=== PATIENT | female | born 1930 | race Caucasian/White ===

== ENCOUNTER 2017-08-03 18:17 | Inpatient (IN) ==
[2017-08-03] MEDS ORDERED: Ipratropium/Albuterol Neb 3 ML ONE (18:44)
[2017-08-03] MEDS ORDERED: Ipratropium/Albuterol Neb 3 ML IH ONE (18:54)
--- NOTE | 2017-08-03 19:03 | Emergency Department Note ---
Disposition Clinical Impression: COPD exacerbation, Risk for falls CHF (congestive heart failure) Qualifiers: Congestive heart failure type: unspecified congestive heart failure type Congestive heart failure chronicity: unspecified congestive heart failure chronicity Qualified Code(s): I50.9 - Heart failure, unspecified Disposition: Admitted As Inpatient Condition: Good Forms: ED Satisfaction Letter Time of Disposition: 20:45 SOB HPI - General Chief Complaint: ED Shortness of Breath/Dyspnea Stated Complaint: [place] Time Seen by Provider: 08/03/17 18:38 Source: patient, family Limitations: no limitations - History of Present Illness Mrs. Joseph is an 87-year-old woman with a history of COPD, CHF, ED status post AICD placement, frequent falls, dementia who presents the ED with 3 days of worsening dyspnea and cough with productive sputum. The patient is demented at baseline and is unable to answer questions freely, she is accompanied by family members who fill in the details. The patient is on home O2 at night only, and COPD he has generally been well controlled however in the past 3 days the patient is experienced more frequent cough, and she has experienced desaturation to less than 88% requiring O2 during the day. Breathing treatments at home were not successful in relieving her symptoms. According to her family, she has felt very cloud engineer the past 3 days and she has been experiencing diaphoresis and chills occasionally as well. She denies chest pain on exertion. The patient's family mentions that she also had some nausea and vomiting and diarrhea approximately 2 days ago which seemed to resolve without complication. Pt Subjective Complaint: shortness of breath Onset (ago): day(s) Context: recent illness Severity: moderate Consistency/Duration: intermittent Improves with: oxygen, upright position Worsens with: exertion, coughing Known history of: COPD, congestive heart failure Associated symptoms: Reports: fever, cough, wheezing, sputum production Treatment prior to arrival: oxygen, bronchodilator Cough present: Yes Cough Description: Voluntary, Productive, Wheezy Cough Frequency: Intermittent Sputum production: Yes Sputum Amount: Scant - Related Data Home oxygen amount: 2 liters (at night) Home Medications Medication Instructions Recorded Confirmed Alprazolam [Xanax] 0.125 mg PO DAILY PRN #0 05/14/15 02/05/16 Carvedilol [Coreg] 25 mg PO BID #0 05/14/15 02/05/16 Ergocalciferol (VITAMIN D2) 50,000 unit PO QWEEK #0 05/14/15 02/05/16 [Vitamin D2 (50,000 UNIT)] Gabapentin [Neurontin] 300 - 600 mg PO HS #0 05/14/15 02/05/16 Losartan [Cozaar] 25 mg PO DAILY 05/14/15 02/05/16 Montelukast [Singulair] 10 mg PO DAILY #0 05/14/15 02/05/16 Venlafaxine XR (24 HR) [Effexor XR] 150 mg PO DAILY #0 05/14/15 02/05/16 Fluticasone/Salmeterol [Advair 1 each IH BID 02/05/16 02/05/16 250-50 Diskus] Furosemide [Lasix] 40 mg PO DAILY 02/05/16 02/05/16 Omeprazole [PriLOSEC] 20 mg PO DAILY 02/05/16 02/05/16 Previous Rx's Medication Instructions Recorded Tiotropium [Spiriva] 18 mcg IH DAILYR 30 Days inh 07/18/15 Benzonatate [Tessalon] 100 mg PO TID PRN #0 capsule 02/07/16 levoFLOXacin [Levaquin] 500 mg PO Q48H #7 tablet 02/07/16 predniSONE [PredniSONE] 10 mg PO DAILY #31 tablet 02/07/16 Azithromycin [Zithromax] 500 mg PO DAILY #5 tablet 09/09/16 Naproxen [Naprosyn] 500 mg PO BID #10 tablet 09/09/16 OxyCODONE/APAP 5/325 [Percocet 1 each PO Q6HR PRN #15 tablet 09/09/16 5/325 MG] Cetirizine HCl [Zyrtec] 10 mg PO DAILY #14 capsule 04/11/17 Fluticasone Propionate Nasal 16 gm NS DAILY #1 bottle 04/11/17 [Flonase] Nitrofurantoin (BID) [Macrobid] 100 mg PO BID #10 capsule 07/01/17 Azithromycin [Azithromycin 6-Tab 250 mg PO PER PKG DI #4 tab 07/17/17 Pack] Allergies Allergy/AdvReac Type Severity Reaction Status Date / Time Penicillins Allergy Hives Verified 09/09/16 14:39 Review of Systems: CONSTITUTIONAL: No weight loss, weakness or fatigue. Positive for fever and chills HEENT: Eyes: No visual loss, blurred vision, double vision or yellow sclerae. Ears, Nose, Throat: No hearing loss, sneezing, congestion, runny nose or sore throat. SKIN: No rash or itching. CARDIOVASCULAR: No chest pain, chest pressure or chest discomfort. No palpitations or edema. RESPIRATORY: Shortness of breath with hypoxia and productive cough GASTROINTESTINAL: No anorexia, nausea. No abdominal pain or blood. Positive for vomiting and diarrhea in past few days which has resolved NEUROLOGICAL: No headache, dizziness, syncope, paralysis, ataxia, numbness or tingling in the extremities. No change in bowel or bladder control. MUSCULOSKELETAL: No muscle, back pain, joint pain or stiffness. HEMATOLOGIC: No anemia, bleeding or bruising. LYMPHATICS: No enlarged nodes. No history of splenectomy. PSYCHIATRIC: No history of depression or anxiety. Baseline dementia ENDOCRINOLOGIC: No reports of sweating, cold or heat intolerance. No polyuria or polydipsia. ALLERGIES: No history of asthma, hives, eczema or rhinitis. Past Medical History - Past Medical History Medical history: Reports: asthma, CHF, COPD, DVT, hypertension, TIA Surgical history: Reports: appendectomy, cholecystectomy, pacemaker/AICD Psychiatric history: Reports: anxiety, bipolar, depression FISH WARDEN history: Reports: no FISH WARDEN history, other - Social History Smoking Status: Former smoker Smokeless Tobacco Status: No Alcohol use: Reports: none Drug use: Reports: none Physical Exam Gen.: Vitals noted. No acute distress. AAOx3 HEENT: PERRL/EOMI, oropharynx clear, Normocephalic, atraumatic Neck: Supple. No adenopathy. Cardiac: RRR, no murmur, +S1/S2 Pulmonary: Diffuse mild rhonchi and end expiratory wheezes on exam Abdomen: soft, nontender, BS noted, no guarding Back: Nontender throughout. MSK: ROM intact, no joint swelling noted Extremities: no BLE edema, nontender calf, no cyanosis or clubbing Neuro: A&Ox2 at baseline, moves all extremities, no focal deficits Psych: Appropriate mood and behavior - General Limitations: no limitations General appearance: alert, in distress Course - Reevaluation(s) Reevaluation #1: Troponin 0.04, BNP 1233. The patient does have increased edema according to family, and troponin is likely secondary to demand ischemia. Time: 20:15 Vital Signs Temperature 98.6 F 08/03/17 18:34 Pulse Rate 95 08/03/17 18:34 Respiratory Rate 24 08/03/17 18:34 Blood Pressure 194/83 08/03/17 18:34 O2 Sat by Pulse Oximetry 92 08/03/17 18:34 Temperature 98.6 F 08/03/17 18:34 Pulse Rate 95 08/03/17 18:34 Respiratory Rate 24 08/03/17 18:34 Blood Pressure 194/83 08/03/17 18:34 O2 Sat by Pulse Oximetry 92 08/03/17 18:34 Oxygen Delivery Oxygen Delivery Room Air Shortness of Breath/Dyspnea - MDM Narrative Medical decision making narrative: Mrs. Joseph is an 87-year-old woman with known history of COPD, CHF, CAD status post AICD. She presented to the ED with increasing dyspnea over the past 3 days which is accompanied by productive cough. She uses oxygen at home overnight at about 2 L/m however in the past 12 hours she has required her to use throughout the day as well to maintain oxygen saturation above 88%. At time of presentation the patient's vitals are stable. She has diffusely rhonchorous and wheezy lung sounds. Clinical appearance is that of an acute exacerbation of COPD. On UA the patient demonstrated numerous white blood cells and meets criteria for UTI. We will initiate steroids and antibiotics at the time, patient will require admission. - Differential Diagnosis Likely: acute exacerbation of chronic obstructive airways disease - Medical Records Medical records reviewed: Yes I reviewed the patient's medical records. - Lab Data Lab results reviewed: Yes I reviewed the patient's lab results. Result diagrams: 08/03/17 19:42 08/03/17 19:42 Lab Results 08/03/17 08/03/17 08/03/17 Range/Units 19:27 19:42 19:42 WBC 8.4 (4.3-11.1) K/mcL RBC 3.91 (3.82-4.97) M/mcL Hgb 11.3 L (11.5-15.4) g/dL Hct 36.1 (35.3-44.9) % MCV 92.3 (83.0-100.0) fL MCH 28.9 (28.0-33.3) pg MCHC 31.3 L (31.6-35.5) g/dL RDW 13.0 (11.5-14.5) % Plt Count 148 (140-400) K/mcL MPV 10.5 (9.4-12.4) fL Immature Gran % 0.4 (0-4) % Seg Neutrophils % 82.1 % Lymphocytes % 8.7 % Monocytes % 7.4 % Eosinophils % 1.0 % Basophils % 0.4 % Neutrophils # 6.9 (1.6-8.9) K/mcL Lymphocytes # 0.7 (0.6-4.6) K/mcL Monocytes # 0.6 (0.0-1.3) K/mcL Eosinophils # 0.1 (0.0-0.6) K/mcL Basophils # 0.0 (0.0-0.2) K/mcL Sodium 139 (136-145) mEq/L Potassium 3.8 (3.5-5.1) mEq/L Chloride 107 (98-107) mEq/L Carbon Dioxide 26 (23-29) mEq/L BUN 14 (8-23) mg/dL Creatinine 1.01 (0.60-1.20) mg/dL Est GFR ( Amer) > 60 (> 60) Est GFR (Non-Af Amer) 52 L (> 60) BUN/Creatinine Ratio 14 (6-26) Glucose 138 H (70-105) mg/dL Calculated Osmolality 291 (280-300) Lactic Acid (0.5-2.2) mmol/L Calcium 8.7 (8.6-10.3) mg/dL Troponin I (< 0.04) ng/mL B-Natriuretic Peptide (Less than 100) pg/mL Urine Color Yellow (Yellow) Urine Clarity Cloudy A (Clear) Urine pH 6.0 (5.0-8.0) pH Units Ur Specific [place] 1.015 (1.010-1.025) Urine Protein 30 H (Neg-Trace) mg/dL Urine Glucose (UA) Normal (Normal) mg/dL Urine Ketones Negative (Negative) mg/dL Urine Blood Small H (Negative) Urine Nitrite Negative (Negative) Urine Bilirubin Negative (Negative) Urine Urobilinogen Normal (Normal) mg/dL Ur Leukocyte Esterase Moderate H (Negative) Urine Microscopic RBC 5-15 H (0-3) per hpf Urine Microscopic WBC TNTC H (0-3) per hpf Ur Squamous Epith Cells Few (None-Few) per lpf Urine Bacteria Many H (None-Few) per hpf Hyaline Casts None Seen (None-Few) per lpf Ur Culture Indicated? YES A (NO) 08/03/17 08/03/17 08/03/17 Range/Units 19:42 19:42 19:42 WBC (4.3-11.1) K/mcL RBC (3.82-4.97) M/mcL Hgb (11.5-15.4) g/dL Hct (35.3-44.9) % MCV (83.0-100.0) fL MCH (28.0-33.3) pg MCHC (31.6-35.5) g/dL RDW (11.5-14.5) % Plt Count (140-400) K/mcL MPV (9.4-12.4) fL Immature Gran % (0-4) % Seg Neutrophils % % Lymphocytes % % Monocytes % % Eosinophils % % Basophils % % Neutrophils # (1.6-8.9) K/mcL Lymphocytes # (0.6-4.6) K/mcL Monocytes # (0.0-1.3) K/mcL Eosinophils # (0.0-0.6) K/mcL Basophils # (0.0-0.2) K/mcL Sodium (136-145) mEq/L Potassium (3.5-5.1) mEq/L Chloride (98-107) mEq/L Carbon Dioxide (23-29) mEq/L BUN (8-23) mg/dL Creatinine (0.60-1.20) mg/dL Est GFR ( Amer) (> 60) Est GFR (Non-Af Amer) (> 60) BUN/Creatinine Ratio (6-26) Glucose (70-105) mg/dL Calculated Osmolality (280-300) Lactic Acid 1.8 (0.5-2.2) mmol/L Calcium (8.6-10.3) mg/dL Troponin I 0.04 H* (< 0.04) ng/mL B-Natriuretic Peptide 1233 H (Less than 100) pg/mL Urine Color (Yellow) Urine Clarity (Clear) Urine pH (5.0-8.0) pH Units Ur Specific [place] (1.010-1.025) Urine Protein (Neg-Trace) mg/dL Urine Glucose (UA) (Normal) mg/dL Urine Ketones (Negative) mg/dL Urine Blood (Negative) Urine Nitrite (Negative) Urine Bilirubin (Negative) Urine Urobilinogen (Normal) mg/dL Ur Leukocyte Esterase (Negative) Urine Microscopic RBC (0-3) per hpf Urine Microscopic WBC (0-3) per hpf Ur Squamous Epith Cells (None-Few) per lpf Urine Bacteria (None-Few) per hpf Hyaline Casts (None-Few) per lpf Ur Culture Indicated? (NO) - Radiology Data Radiology results reviewed: Yes I reviewed the patient's radiology results. - EKG Data EKG attestation: Yes I reviewed and interpreted this EKG.
--- NOTE | 2017-08-03 19:10 | Emergency Department Note ---
START Narrative - START START: I examined this patient and my medical decision-making was reviewed with the Resident Physician. I agree with the documented findings, disposition and treatment plan as described except to the extent set forth below. 87-year-old female presents emergency room for shortness of breath. Patient has a known history of COPD. Worse home oxygen only at night. She describes increasing dyspnea and work of breathing associated with cough and wheezing. Evaluation seems to be a COPD exacerbation. We will check some screening lab work, chest x-ray. Likely an admission.
[2017-08-03] MEDS ORDERED: Azithromycin 500 MG in D5% in Water 250 ML IVPB ONE (19:15)
[2017-08-03] MEDS ORDERED: methylPREDNISolone 125 MG/2 ML VIAL IVP ONE (19:15)
[2017-08-03 19:36] LABS: Bilirubin,Urine Negative (Negative); Blood,Urine Small (Negative); Clarity,Urine Cloudy (Clear); Color,Urine Yellow (Yellow); Glucose,Urine (UA) Normal (Normal); Ketones,Urine Negative (Negative); Leukocyte Esterase,Urine Moderate (Negative); Nitrite,Urine Negative (Negative); Protein,Urine 30 mg/dL (Neg-Trace); Specific Gravity,Urine 1.015 (1.010-1.025); Urobilinogen,Urine Normal (Normal)
[2017-08-03 19:39] LABS: Bacteria,Urine Many per hpf (None-Few); Hyaline Casts,Urine None Seen per lpf (None-Few); Squamous Epithelial Cell,Urine Few per lpf (None-Few); WBC,Urine TNTC per hpf (0-3)
[2017-08-03 20:02] LABS: Basophils % 0.4 %; Eosinophils # 0.1 K/mcL (0.0-0.6); Hematocrit 36.1 % (35.3-44.9); Hemoglobin 11.3 g/dL (11.5-15.4); Immature Granulocytes % 0.4 % (0-4); Lymphocytes # 0.7 K/mcL (0.6-4.6); Lymphocytes % 8.7 %; Mean Corpuscular HGB Conc 31.3 g/dL (31.6-35.5); Mean Corpuscular Hemoglobin 28.9 pg (28.0-33.3); Mean Corpuscular Volume 92.3 fL (83.0-100.0); Mean Platelet Volume 10.5 fL (9.4-12.4); Monocytes # 0.6 K/mcL (0.0-1.3); Monocytes % 7.4 %; Neutrophils # 6.9 K/mcL (1.6-8.9); Platelet Count 148 K/mcL (140-400); Red Blood Count 3.91 M/mcL (3.82-4.97); Segmented Neutrophils % 82.1 %
[2017-08-03 20:08] LABS: BUN/Creatinine Ratio 14 (6-26); Blood Urea Nitrogen 14 mg/dL (8-23); Calcium 8.7 mg/dL (8.6-10.3); Carbon Dioxide 26 mEq/L (23-29); Chloride 107 mEq/L (98-107); Glucose 138 mg/dL (70-105); Osmolality,Calculated 291 (280-300); Potassium 3.8 mEq/L (3.5-5.1); Sodium 139 mEq/L (136-145); eGFR For African Americans > 60 (> 60); eGFR For Non-African Americans 52 (> 60)
[2017-08-03] MEDS ORDERED: Furosemide 20 MG/2 ML VIAL IVP ONE (20:30)
[2017-08-04] MEDS ORDERED: Levofloxacin 750 MG/150 ML 750 MG/150 ML BAG IVPB SCH (01:00)
--- NOTE | 2017-08-04 05:35 | Internal Med History&Physical ---
Date of Encounter: 08/04/17 Time of Encounter: 05:29 Assessment and Plan (1) Acute respiratory failure with hypoxia Current visit: Yes Status: Acute Multifactororial likely pneumonia/COPD exacerbation, CHF. Continue Duo Neb, start PO Prednisone, sputum cultures, procalcitonin, Lasix IV 20 mg BID, daily weights, Levaquin. (2) COPD exacerbation Current visit: No Status: Resolved Prednisone, Duo Nebs scheduled, Levaquin (3) Systolic heart failure Current visit: Yes Status: Acute On Coreg and Avapro. Continue diuresis. Last echocardiogram was 02/2016 with EF 40%. Qualifiers: Heart failure chronicity: acute on chronic Qualified Code(s): I50.23 - Acute on chronic systolic (congestive) heart failure (4) Pneumonia Current visit: Yes Status: Acute Continue Levaquin Qualifiers: Pneumonia type: due to unspecified organism Laterality: unspecified laterality Lung location: unspecified part of lung Qualified Code(s): J18.9 - Pneumonia, unspecified organism (5) Urinary tract infection Current visit: Yes Status: Acute Levaquin Qualifiers: Urinary tract infection type: site unspecified Hematuria presence: without hematuria Qualified Code(s): N39.0 - Urinary tract infection, site not specified (6) Essential hypertension Current visit: Yes Status: Acute (7) COPD exacerbation Current visit: Yes Status: Acute (8) DVT prophylaxis Current visit: No Status: Acute Heparin Sq 5,000 units BID Internal Medicine - H&P: HPI Chief complaint: dyspnea History of present illness: Mrs. Joseph is an 87-year-old woman with a history of COPD, CHF, ED status post AICD placement, dementia who presents the ED with 3 days of worsening dyspnea and cough with productive sputum. The patient is demented at baseline and no family is currently at bedside. Per ED reports, family states patient is on home O2 at night only for COPD, has been experienced more frequent cough, and she has experienced desaturation to less than 88% requiring O2 during the day. She was experiencing diaphoresis and chills occasionally as well. The patient' s family mentions that she also had some nausea and vomiting and diarrhea approximately 2 days ago which seemed to resolve without complication. In the ED she was treated for COPD exacerbation and CHF with Solu Medrol and Lasix 20 mg IV once. Patient is currently in no acute distress. EKG was unchanged since a past one done in 06/2017. Chest x-ray showed atelectasis vs pneumonia. She has a documented elevated temperature 100.3. No recent hospitalizations seen on record. She had no leukocytosis, BNP elevated at 1233, 17 days ago was 834. HFREF Past Med Surg Social Fam HX - Past Medical History Medical history: asthma, CHF, COPD, DVT, hypertension, TIA Psychiatric history: anxiety, bipolar, depression - Past Surgical History Surgical History: appendectomy, cholecystectomy, pacemaker/AICD - Social History Smoking Status: Former smoker Smokeless Tobacco Status: No Alcohol use: none Drug use: none - Family History Mother Living Status: Hx Family Cardiac Disorders: Yes Father Living Status: Hx Family Cardiac Disorders: Yes Hx Family Cancer: Yes Internal Medicine - H&P: Meds Carvedilol [Coreg] 25 mg PO BID #0 05/14/15 [History] Ergocalciferol (VITAMIN D2) [Vitamin D2 (50,000 UNIT)] 50,000 unit PO QWEEK #0 05/14/15 [History] Gabapentin [Neurontin] 300 - 600 mg PO HS #0 05/14/15 [History] Montelukast [Singulair] 10 mg PO DAILY #0 05/14/15 [History] Venlafaxine XR (24 HR) [Effexor XR] 150 mg PO DAILY #0 05/14/15 [History] Tiotropium [Spiriva] 18 mcg IH DAILYR 30 Days inh 07/18/15 [Rx] Omeprazole [PriLOSEC] 20 mg PO DAILY 02/05/16 [History] Cetirizine HCl [Zyrtec] 10 mg PO DAILY #14 capsule 04/11/17 [Rx] Buspirone HCl [Buspar] 5 mg PO BID 08/03/17 [History] Fluticasone Propionate Nasal [Flonase] 1 spray NS DAILY 08/03/17 [History] Irbesartan [Avapro] 150 mg PO DAILY 08/03/17 [History] 3 Allergy/AdvReac Type Severity Reaction Status Date / Time Penicillins Allergy Hives Verified 09/09/16 14:39 All Systems PM: A 10-system review of systems was performed and is negative for pertinent findings except as documented above in the HPI. - Constitutional Constitutional: chills, fever(s) - EENT Eyes: no change in vision, no discharge, no pain, no photophobia Nose, mouth and throat: no dysphagia, no nasal discharge, no neck pain, no sore throat - Cardiovascular Cardiovascular ROS IM: no chest pain, no diaphoresis, no dyspnea, no lightheadedness, no palpitations, no syncope - Respiratory Respiratory: cough, dyspnea, excessive phlegm production, no wheezing - Gastrointestinal Gastrointestinal: no abdominal pain, no diarrhea, no hematemesis, no hematochezia, no melena, no nausea, no vomiting - Genitourinary Genitourinary: no change in urinary stream, no dysuria, no flank pain, no hematuria - Neurological Neurological ROS: no confusion, no convulsions, no focal weakness, no numbness, no tingling, no tremor(s) - Psychiatric Psychiatric: abnormal sleep pattern - Constitutional Vitals: Temp Pulse Resp BP Pulse Ox 97.6 F 76 16 163/80 95 08/04/17 04:33 08/04/17 04:33 08/04/17 04:33 08/04/17 04:33 08/04/17 04:33 General appearance: Present: A&O X 2 - Head Head exam: Present: atraumatic, normocephalic - Eye Eye exam: Present: PERRL, conjuntiva pink, sclera anicteric Pupils: Present: PERRL - Respiratory Additional comments: Poor inspiratory effort. End expiratory wheezing throughout. Diffuse rales in all lung mercedes. when patient gives good effort can appreciate wheezing and rales. - Cardiovascular Cardiovascular exam: Present: RRR, +S1, +S2. Absent: diastolic murmur, gallop, rubs, systolic murmur - Extremities Exam Extremities exam: Present: warm, radial pulses palpable and symmetrical. Absent : calf tenderness, cyanotic, pedal edema Internal Med - H&P Results - Labs CBC & Chem 7: 08/03/17 19:42 08/03/17 19:42
[2017-08-04] MEDS ORDERED: Naloxone 0.4 MG/ML INJ IVP PRN (05:46)
[2017-08-04] MEDS ORDERED: Acetaminophen 325 MG TABLET PO PRN (05:46)
[2017-08-04] MEDS: *HR* Heparin 5,000 UNIT/ML VIAL SQ SCH ×2 (06:44→18:03)
[2017-08-04] MEDS: Ipratropium/Albuterol Neb 3 ML IH SCH ×5 (07:49→23:19)
[2017-08-04] MEDS: Tiotropium 18 MCG inhalation IH SCH (07:51)
--- NOTE | 2017-08-04 09:18 | Event Note ---
Date of Encounter: 08/04/17 Time of Encounter: 08:50 Patient is an 87y/o female with Hx of COPD on LTOT, CHF, dementia who is admitted for acute respiratory distress secondary to PNA, CHF exacerbation, and COPD exacerbation. Patient seen and examined at bedside. Resting in bed, eating breakfast. Reports of improvement in her breathing and denies any sob at this time Will continue empiric IV abx, systemic steroids, bronchodilator support, IV Lasix at this time monitor daily weights, strict I/Os, fluid restriction diet f/u 2D echo Noted to be hypertensive this morning, will recheck BP after she receives her home medications Added Hydralazine 10mg IV q6h prn SBP>160 elevated TNI noted, likely secondary to demand ischemia, no chest pain reported at this time. will closely monitor labs and vitals reviewed restarted home medications
[2017-08-04] MEDS: Fluticasone Propionate Nasal 50 MCG/SPRAY BOTTLE NS SCH (09:42)
[2017-08-04] MEDS: Venlafaxine XR (24 HR) 150 MG CAP.ER.24H PO SCH (09:43)
[2017-08-04] MEDS: predniSONE 20 MG TABLET PO SCH (09:43)
[2017-08-04] MEDS: Furosemide 40 MG/4 ML VIAL IVP SCH ×2 (09:44→22:29)
[2017-08-04] MEDS: Loratadine 10 MG TABLET PO SCH (09:44)
--- NOTE | 2017-08-04 16:41 | Electrocardiograph Report ---
[address] [place], [place] [address] Test Date: 2017-08-03 Pat Name: Majo Joseph Department: 103 Room: 3A45 Gender: F Credit Checker: NOA : [id number] Requested By: Nate Parker Order Number: [id number] Reading MD: Bobby Elias MD Measurements Intervals [place] Rate: 96 P: 61 AL: 146 QRS: -43 QRSD: 142 T: 134 QT: 360 QTc: 414 Interpretive Statements ELECTRONIC VENTRICULAR PACEMAKER Electronically Signed On 08-04-2017 16:39:16 EST by Bobby Elias MD
[2017-08-04] MEDS ORDERED: Melatonin 3 MG TABLET PO ONE (22:14)
[2017-08-04] MEDS: Gabapentin 300 MG CAPSULE PO SCH (22:29)
[2017-08-05] MEDS: Ipratropium/Albuterol Neb 3 ML IH SCH ×5 (03:55→20:48)
[2017-08-05] MEDS: *HR* Heparin 5,000 UNIT/ML VIAL SQ SCH ×2 (07:11→17:21)
[2017-08-05] MEDS: Tiotropium 18 MCG inhalation IH SCH (07:56)
[2017-08-05 08:51] LABS: Basophils % 0.2 %; Hematocrit 32.8 % (35.3-44.9); Immature Granulocytes % 0.2 % (0-4); Lymphocytes # 1.5 K/mcL (0.6-4.6); Lymphocytes % 17.2 %; Mean Corpuscular HGB Conc 33.5 g/dL (31.6-35.5); Mean Corpuscular Hemoglobin 29.6 pg (28.0-33.3); Mean Corpuscular Volume 88.2 fL (83.0-100.0); Mean Platelet Volume 10.6 fL (9.4-12.4); Monocytes # 0.9 K/mcL (0.0-1.3); Monocytes % 10.7 %; Neutrophils # 6.2 K/mcL (1.6-8.9); Platelet Count 150 K/mcL (140-400); Red Blood Count 3.72 M/mcL (3.82-4.97); Red Cell Distribution Width 12.9 % (11.5-14.5); Segmented Neutrophils % 71.7 %
[2017-08-05 09:15] LABS: Calcium 8.9 mg/dL (8.6-10.3); Magnesium 1.8 mg/dL (1.6-2.6); Phosphorous 3.4 mg/dL (2.7-4.5); Potassium 3.7 mEq/L (3.5-5.1)
[2017-08-05] MEDS: Venlafaxine XR (24 HR) 150 MG CAP.ER.24H PO SCH (09:48)
[2017-08-05] MEDS: Fluticasone Propionate Nasal 50 MCG/SPRAY BOTTLE NS SCH (09:48)
[2017-08-05] MEDS: Loratadine 10 MG TABLET PO SCH (09:48)
[2017-08-05] MEDS: predniSONE 20 MG TABLET PO SCH (09:48)
[2017-08-05] MEDS: Furosemide 40 MG/4 ML VIAL IVP SCH ×2 (09:49→17:21)
[2017-08-05 14:26] LABS: Procalcitonin 0.25 ng/mL (<=0.10)
--- NOTE | 2017-08-05 14:45 | Internal Med Progress Note ---
Date of Encounter: 08/05/17 Time of Encounter: 13:20 - Subjective Interval history: Patient seen and examined at bedside. Reports of improvement in her breathing compared to previous day. Assessment and Plan (1) Acute respiratory failure with hypoxia Current visit: Yes Status: Acute Mutifactorial secondary to PNA, CHF exacerbation, and COPD exacerbation. continue IV abx, IV diuresis, systemic steroids bronchodilator support monitor I/Os, daily weights, fluid restriction diet (2) COPD exacerbation Current visit: No Status: Resolved Prednisone, Duo Nebs scheduled, Levaquin (3) Systolic heart failure Current visit: Yes Status: Acute On Coreg . Continue diuresis. 2D echo: LVEF 50-55%. Normal LV chamber size and function. Mild concentric left ventricular hypertrophy. Mild left ventricular diastolic dysfunction. Normal right ventricular structure and function. Moderately calcified, trileaflet aortic valve leaflets. Mild aortic regurgitation. Moderate aortic stenosis. Mean gradient 22 mmHg. Peak velocity 3.04 m/s. Mild pulmonary hypertension. Qualifiers: Heart failure chronicity: acute on chronic Qualified Code(s): I50.23 - Acute on chronic systolic (congestive) heart failure (4) Pneumonia Current visit: Yes Status: Acute Continue Levaquin Qualifiers: Pneumonia type: due to unspecified organism Laterality: unspecified laterality Lung location: unspecified part of lung Qualified Code(s): J18.9 - Pneumonia, unspecified organism (5) Urinary tract infection Current visit: Yes Status: Acute Levaquin Qualifiers: Urinary tract infection type: site unspecified Hematuria presence: without hematuria Qualified Code(s): N39.0 - Urinary tract infection, site not specified (6) Essential hypertension Current visit: Yes Status: Acute Noted to be hypertensive continue home meds added Hydralazine 10mg IV q6h prn SBP>160 if remains hypertensive, adjust home medications accordingly (7) COPD exacerbation Current visit: Yes Status: Acute (8) DVT prophylaxis Current visit: No Status: Acute Heparin Sq 5,000 units BID - Constitutional Vitals: Temp Pulse Resp BP Pulse Ox 97.5 F L 65 18 163/75 100 08/05/17 12:32 08/05/17 12:32 08/05/17 12:32 08/05/17 12:32 08/05/17 12:32 General appearance: Present: no acute distress, answers questions appropriately - Head Head exam: Present: atraumatic, normocephalic - Eye Eye exam: Present: conjuntiva pink, sclera anicteric - Respiratory Respiratory exam: Present: wheezes (mild diffuse expiratory wheezing and mild bibasilar rales). Absent: respiratory distress - Cardiovascular Cardiovascular exam: Present: RRR, +S1, +S2. Absent: diastolic murmur, gallop, rubs, systolic murmur - GI/Abdominal GI/Abdominal exam: Present: normal bowel sounds, soft, no peritoneal signs. Absent: distended, tenderness - Extremities Exam Extremities exam: Present: warm, radial pulses palpable and symmetrical. Absent : calf tenderness Internal Medicine: Result - Labs CBC & Chem 7: 08/05/17 08:35 08/05/17 08:35 Labs: Short CBC 08/05/17 Range/Units 08:35 WBC 8.7 (4.3-11.1) K/mcL Hgb 11.0 L (11.5-15.4) g/dL Hct 32.8 L (35.3-44.9) % Plt Count 150 (140-400) K/mcL Neutrophils # 6.2 (1.6-8.9) K/mcL BMP 08/05/17 08:35 Sodium 137 Potassium 3.7 Chloride 100 Carbon Dioxide 31 H BUN 29 H Creatinine 1.18 Glucose 97 Calcium 8.9 - Impressions Impressions Echocardiogram 08/04/17 07:59 Impressions: LVEF 50-55%. Normal LV chamber size and function. Mild concentric left ventricular hypertrophy. Mild left ventricular diastolic dysfunction. Normal right ventricular structure and function. Moderately calcified, trileaflet aortic valve leaflets. Mild aortic regurgitation. Moderate aortic stenosis. Mean gradient 22 mmHg. Peak velocity 3.04 m/s. Mild pulmonary hypertension. A device lead was visualized in the right atrium and right ventricle. Left Ventricular Wall Motion: Rest Echo Findings All wall segments showed normal motion. Findings: Study Quality * Technically adequate exam. ECG Findings * Paced rhythm. Left Ventricle * LVEF 50-55%. * Normal LV chamber size and function. * Mild concentric left ventricular hypertrophy. * Mild left ventricular diastolic dysfunction. Right Ventricle * Normal right ventricular structure and function. Left Atrium * Moderately dilated left atrium. Right Atrium * Normal right atrial size. Interatrial Septum * No evidence of a PFO by color Doppler. Aortic Valve * Trileaflet aortic valve. * Moderately calcified aortic valve leaflets. * Mild aortic regurgitation. * Moderate aortic stenosis. Mean gradient 22 mmHg. Peak velocity 3.04 m/s. Mitral Valve * Mildly thickened mitral valve leaflets. * No mitral regurgitation. * No mitral stenosis. Tricuspid Valve * Normal tricuspid valve structure and function. * Trace tricuspid regurgitation. * Mild pulmonary hypertension. Pulmonic Valve * Normal pulmonic valve structure and function. * No pulmonic regurgitation. Aorta * Normally sized aortic root. Pericardium * The pericardium appears normal. IVC * Normal IVC dimensions and inspiratory collapse. Device lead * A device lead was visualized in the right atrium and right ventricle. Pulmonary Artery * Normal visualized portions of the main pulmonary artery. Consult Discharge Plan - Plan Referrals: NONE,PCP [Primary Care Provider] -
[2017-08-05] MEDS: Gabapentin 300 MG CAPSULE PO SCH (22:38)
[2017-08-06] MEDS: Ipratropium/Albuterol Neb 3 ML IH SCH ×7 (00:32→23:21)
[2017-08-06] MEDS: Levofloxacin 750 MG/150 ML 750 MG/150 ML BAG IVPB SCH (02:55)
[2017-08-06] MEDS: *HR* Heparin 5,000 UNIT/ML VIAL SQ SCH ×2 (05:42→18:32)
[2017-08-06 06:02] LABS: Basophils % 0.1 %; Hematocrit 33.1 % (35.3-44.9); Hemoglobin 10.6 g/dL (11.5-15.4); Immature Granulocytes % 0.2 % (0-4); Lymphocytes # 1.5 K/mcL (0.6-4.6); Lymphocytes % 16.6 %; Mean Corpuscular Hemoglobin 28.6 pg (28.0-33.3); Mean Corpuscular Volume 89.2 fL (83.0-100.0); Mean Platelet Volume 10.8 fL (9.4-12.4); Monocytes # 0.7 K/mcL (0.0-1.3); Neutrophils # 6.6 K/mcL (1.6-8.9); Platelet Count 152 K/mcL (140-400); Red Blood Count 3.71 M/mcL (3.82-4.97); Red Cell Distribution Width 12.8 % (11.5-14.5); Segmented Neutrophils % 75.1 %
[2017-08-06 06:19] LABS: Calcium 8.5 mg/dL (8.6-10.3); Magnesium 1.9 mg/dL (1.6-2.6); Potassium 3.6 mEq/L (3.5-5.1)
[2017-08-06] MEDS: Loratadine 10 MG TABLET PO SCH (09:21)
[2017-08-06] MEDS: Venlafaxine XR (24 HR) 150 MG CAP.ER.24H PO SCH (09:21)
[2017-08-06] MEDS: Furosemide 40 MG/4 ML VIAL IVP SCH (09:22)
[2017-08-06] MEDS: Fluticasone Propionate Nasal 50 MCG/SPRAY BOTTLE NS SCH (09:23)
[2017-08-06] MEDS: predniSONE 20 MG TABLET PO SCH (09:23)
[2017-08-06] MEDS: Tiotropium 18 MCG inhalation IH SCH (11:06)
[2017-08-06] MEDS: MethylPREDNISolone 40 MG/ML VIAL IVP SCH (16:10)
--- NOTE | 2017-08-06 16:59 | Internal Med Progress Note ---
Date of Encounter: 08/06/17 Time of Encounter: 16:56 - Assessment and plan (1) COPD exacerbation Current Visit: Yes Status: Acute Assessment and plan: Continue IV steroids instead of oral and nebulizer treatment. (2) Systolic heart failure Current Visit: Yes Status: Acute Assessment and plan: I will decrease Lasix to 20 mg IV daily. Strict intake and output. Qualifiers: Heart failure chronicity: acute on chronic Qualified Code(s): I50.23 - Acute on chronic systolic (congestive) heart failure (3) Acute respiratory failure with hypoxia Current Visit: Yes Status: Acute Assessment and plan: Improving currently requiring only 2 L of nasal oxygen. (4) Urinary tract infection Current Visit: Yes Status: Acute Assessment and plan: Any current antibiotic regimen with levofloxacin. Qualifiers: Urinary tract infection type: site unspecified Hematuria presence: without hematuria Qualified Code(s): N39.0 - Urinary tract infection, site not specified (5) Physical deconditioning Current Visit: Yes Status: Acute Assessment and plan: Physical therapy and occupational therapy to see the patient. Expected discharge from the hospital in 48 hours - Subjective Interval history: Patient seen and examined at bedside. Notices improvement in her respiratory status. Requiring currently 2 L of oxygen. Afebrile the past 48 hours. - Constitutional Vitals: Temp Pulse Resp BP Pulse Ox 98.0 F 76 16 153/91 96 08/06/17 15:11 08/06/17 15:11 08/06/17 16:08 08/06/17 15:11 08/06/17 16:08 General appearance: Present: no acute distress, answers questions appropriately Exam: Gen.: patient is alert oriented times 3 not in distress. Cardiac: normal S1 S2 no additional sounds chest: diminished air entry, expiratory wheezing abdomen: soft nontender nondistended normal bowel sounds Neuro: no focal deficits LE: no swelling Internal Medicine: Result - Labs CBC & Chem 7: 08/06/17 05:13 08/06/17 05:13 Labs: Short CBC 08/06/17 Range/Units 05:13 WBC 8.8 (4.3-11.1) K/mcL Hgb 10.6 L (11.5-15.4) g/dL Hct 33.1 L (35.3-44.9) % Plt Count 152 (140-400) K/mcL Neutrophils # 6.6 (1.6-8.9) K/mcL BMP 08/06/17 05:13 Sodium 135 L Potassium 3.6 Chloride 99 Carbon Dioxide 29 BUN 37 H Creatinine 1.20 Glucose 110 H Calcium 8.5 L Consult Discharge Plan - Plan Referrals: NONE,PCP [Primary Care Provider] -
[2017-08-06] MEDS: Gabapentin 300 MG CAPSULE PO SCH (22:03)
[2017-08-07] MEDS: MethylPREDNISolone 40 MG/ML VIAL IVP SCH ×3 (00:48→17:41)
[2017-08-07] MEDS: Ipratropium/Albuterol Neb 3 ML IH SCH ×6 (03:28→23:05)
[2017-08-07] MEDS: Loratadine 10 MG TABLET PO SCH (08:50)
[2017-08-07] MEDS: Fluticasone Propionate Nasal 50 MCG/SPRAY BOTTLE NS SCH (08:50)
[2017-08-07] MEDS: Venlafaxine XR (24 HR) 150 MG CAP.ER.24H PO SCH (08:50)
[2017-08-07] MEDS ORDERED: Furosemide 40 MG/4 ML VIAL IVP SCH (09:00)
[2017-08-07 10:36] LABS: Calcium 8.9 mg/dL (8.6-10.3); Magnesium 2.1 mg/dL (1.6-2.6); Potassium 4.1 mEq/L (3.5-5.1)
[2017-08-07 10:42] LABS: Basophils % 0.1 %; Hematocrit 37.8 % (35.3-44.9); Hemoglobin 12.1 g/dL (11.5-15.4); Immature Granulocytes % 0.2 % (0-4); Lymphocytes # 1.4 K/mcL (0.6-4.6); Mean Corpuscular Hemoglobin 28.7 pg (28.0-33.3); Mean Corpuscular Volume 89.8 fL (83.0-100.0); Mean Platelet Volume 10.9 fL (9.4-12.4); Monocytes # 0.5 K/mcL (0.0-1.3); Monocytes % 4.6 %; Neutrophils # 8.2 K/mcL (1.6-8.9); Platelet Count 171 K/mcL (140-400); Red Blood Count 4.21 M/mcL (3.82-4.97); Red Cell Distribution Width 12.7 % (11.5-14.5); Segmented Neutrophils % 81.1 %
[2017-08-07] MEDS: Tiotropium 18 MCG inhalation IH SCH (14:51)
[2017-08-07] MEDS: *HR* Heparin 5,000 UNIT/ML VIAL SQ SCH ×2 (17:41→21:32)
[2017-08-07 17:49] LABS: Mycoplasma pneumoniae IgG 0.26 U/L (<=0.09)
--- NOTE | 2017-08-07 18:13 | Internal Med Progress Note ---
Date of Encounter: 08/07/17 Time of Encounter: 18:11 - Assessment and plan (1) COPD exacerbation Current Visit: Yes Status: Acute Assessment and plan: Continue IV steroids and nebulizer treatment. (2) Systolic heart failure Current Visit: Yes Status: Acute Assessment and plan: Discontinue IV Lasix due to increase in bicarb and rising BUN. Qualifiers: Heart failure chronicity: acute on chronic Qualified Code(s): I50.23 - Acute on chronic systolic (congestive) heart failure (3) Acute respiratory failure with hypoxia Current Visit: Yes Status: Acute Assessment and plan: Improving currently requiring only 2 L of nasal oxygen. (4) Urinary tract infection Current Visit: Yes Status: Acute Assessment and plan: Continue current antibiotic regimen with levofloxacin. Qualifiers: Urinary tract infection type: site unspecified Hematuria presence: without hematuria Qualified Code(s): N39.0 - Urinary tract infection, site not specified (5) Physical deconditioning Current Visit: Yes Status: Acute Assessment and plan: Physical therapy and occupational therapy to see the patient. Expected discharge from the hospital in tomorrow or after tomorrow - Subjective Interval history: Patient seen and examined at bedside. Notices improvement in her respiratory status. Requiring currently 2 L of oxygen. Afebrile the past 48 hours. - Constitutional Vitals: Temp Pulse Resp BP Pulse Ox 97.6 F 66 16 105/54 96 08/07/17 15:54 08/07/17 15:54 08/07/17 15:54 08/07/17 15:54 08/07/17 15:54 General appearance: Present: no acute distress, answers questions appropriately Exam: Gen.: patient is alert oriented times 3 not in distress. Cardiac: normal S1 S2 no additional sounds or murmurs chest: fair air entry. expiratory wheezing. No crackles or bronchial breathing. abdomen: soft nontender nondistended normal bowel sounds neuro: no focal deficit LE: no swelling Internal Medicine: Result - Labs CBC & Chem 7: 08/07/17 10:02 08/07/17 10:02 Labs: Short CBC 08/07/17 Range/Units 10:02 WBC 10.1 (4.3-11.1) K/mcL Hgb 12.1 D (11.5-15.4) g/dL Hct 37.8 (35.3-44.9) % Plt Count 171 (140-400) K/mcL Neutrophils # 8.2 (1.6-8.9) K/mcL BMP 08/07/17 10:02 Sodium 140 Potassium 4.1 Chloride 103 Carbon Dioxide 30 H BUN 38 H Creatinine 1.20 Glucose 142 H Calcium 8.9 Consult Discharge Plan - Plan Referrals: NONE,PCP [Primary Care Provider] -
[2017-08-07] MEDS: Gabapentin 300 MG CAPSULE PO SCH (21:34)
[2017-08-08] MEDS: MethylPREDNISolone 40 MG/ML VIAL IVP SCH (01:04)
[2017-08-08] MEDS: Levofloxacin 750 MG/150 ML 750 MG/150 ML BAG IVPB SCH (01:04)
[2017-08-08] MEDS: Ipratropium/Albuterol Neb 3 ML IH SCH ×5 (03:43→22:21)
[2017-08-08] MEDS: *HR* Heparin 5,000 UNIT/ML VIAL SQ SCH ×2 (05:19→18:31)
[2017-08-08] MEDS: Tiotropium 18 MCG inhalation IH SCH (07:21)
[2017-08-08 08:07] LABS: Basophils % 0.1 %; Hematocrit 34.1 % (35.3-44.9); Hemoglobin 11.1 g/dL (11.5-15.4); Immature Granulocytes % 0.5 % (0-4); Lymphocytes % 8.4 %; Mean Corpuscular HGB Conc 32.6 g/dL (31.6-35.5); Mean Corpuscular Hemoglobin 29.1 pg (28.0-33.3); Mean Corpuscular Volume 89.5 fL (83.0-100.0); Mean Platelet Volume 10.5 fL (9.4-12.4); Monocytes # 0.2 K/mcL (0.0-1.3); Monocytes % 2.1 %; Neutrophils # 10.4 K/mcL (1.6-8.9); Platelet Count 155 K/mcL (140-400); Red Blood Count 3.81 M/mcL (3.82-4.97); Red Cell Distribution Width 12.8 % (11.5-14.5); Segmented Neutrophils % 88.9 %
[2017-08-08 08:26] LABS: Calcium 8.6 mg/dL (8.6-10.3); Magnesium 2.1 mg/dL (1.6-2.6); Potassium 4.1 mEq/L (3.5-5.1)
[2017-08-08] MEDS ORDERED: Lactulose Oral Soln 20 GM/30 ML UDC PO ONE (08:45)
[2017-08-08] MEDS ORDERED: Furosemide 20 MG TABLET PO PRN (08:45)
[2017-08-08] MEDS: predniSONE 20 MG TABLET PO SCH (09:07)
[2017-08-08] MEDS: Loratadine 10 MG TABLET PO SCH (09:07)
[2017-08-08] MEDS: Venlafaxine XR (24 HR) 150 MG CAP.ER.24H PO SCH (09:07)
[2017-08-08] MEDS: Fluticasone Propionate Nasal 50 MCG/SPRAY BOTTLE NS SCH (09:09)
--- NOTE | 2017-08-08 10:48 | Internal Med Progress Note ---
Date of Encounter: 08/08/17 Time of Encounter: 10:46 - Assessment and plan (1) COPD exacerbation Current Visit: Yes Status: Acute Assessment and plan: Switch steroids to PO and nebulizer treatment. Nebulizer treatment to q6h (2) Systolic heart failure Current Visit: Yes Status: Acute Assessment and plan: Discontinue IV Lasix due to increase in bicarb and rising BUN. Qualifiers: Heart failure chronicity: acute on chronic Qualified Code(s): I50.23 - Acute on chronic systolic (congestive) heart failure (3) Acute respiratory failure with hypoxia Current Visit: Yes Status: Acute Assessment and plan: Improving currently requiring only 2 L of nasal oxygen. (4) Urinary tract infection Current Visit: Yes Status: Acute Assessment and plan: Continue current antibiotic regimen with levofloxacin. Qualifiers: Urinary tract infection type: site unspecified Hematuria presence: without hematuria Qualified Code(s): N39.0 - Urinary tract infection, site not specified (5) Physical deconditioning Current Visit: Yes Status: Acute Assessment and plan: Physical therapy and occupational therapy to see the patient. Expected discharge from the hospital tomorrow - Subjective Interval history: Patient seen and examined at bedside. Notices improvement in her respiratory status. Still Requiring currently 2 L of oxygen. Afebrile - Constitutional Vitals: Temp Pulse Resp BP Pulse Ox 99.1 F 80 16 146/70 99 08/08/17 06:50 08/08/17 06:50 08/08/17 07:30 08/08/17 06:50 08/08/17 07:30 General appearance: Present: no acute distress, answers questions appropriately Exam: Gen.: patient is alert oriented times 3 not in distress. Cardiac: normal S1 S2 no additional sounds chest: scattered expiratory wheezing abdomen: soft nontender nondistended normal bowel sounds Neuro: no focal deficits LE: no swelling Internal Medicine: Result - Labs CBC & Chem 7: 08/08/17 07:43 08/08/17 07:43 Labs: Short CBC 08/07/17 08/08/17 Range/Units 10:02 07:43 WBC 10.1 11.7 H (4.3-11.1) K/mcL Hgb 12.1 D 11.1 L (11.5-15.4) g/dL Hct 37.8 34.1 L (35.3-44.9) % Plt Count 171 155 (140-400) K/mcL Neutrophils # 8.2 10.4 H (1.6-8.9) K/mcL BMP 08/08/17 07:43 Sodium 138 Potassium 4.1 Chloride 103 Carbon Dioxide 30 H BUN 40 H Creatinine 1.08 Glucose 135 H Calcium 8.6 Consult Discharge Plan - Plan Referrals: NONE,PCP [Primary Care Provider] -
[2017-08-08] MEDS: Gabapentin 300 MG CAPSULE PO SCH (19:54)
[2017-08-09] MEDS: *HR* Heparin 5,000 UNIT/ML VIAL SQ SCH (05:00)
[2017-08-09 05:38] LABS: Basophils % 0.2 %; Hematocrit 35.2 % (35.3-44.9); Hemoglobin 11.4 g/dL (11.5-15.4); Immature Granulocytes % 1.1 % (0-4); Lymphocytes # 1.8 K/mcL (0.6-4.6); Lymphocytes % 14.6 %; Mean Corpuscular HGB Conc 32.4 g/dL (31.6-35.5); Mean Corpuscular Hemoglobin 29.1 pg (28.0-33.3); Mean Corpuscular Volume 89.8 fL (83.0-100.0); Mean Platelet Volume 10.4 fL (9.4-12.4); Monocytes # 0.8 K/mcL (0.0-1.3); Monocytes % 6.7 %; Neutrophils # 9.8 K/mcL (1.6-8.9); Platelet Count 168 K/mcL (140-400); Red Blood Count 3.92 M/mcL (3.82-4.97); Red Cell Distribution Width 12.6 % (11.5-14.5); Segmented Neutrophils % 77.4 %
[2017-08-09 05:51] LABS: BUN/Creatinine Ratio 33 (6-26); Blood Urea Nitrogen 33 mg/dL (8-23); Calcium 8.7 mg/dL (8.6-10.3); Carbon Dioxide 30 mEq/L (23-29); Chloride 102 mEq/L (98-107); Glucose 106 mg/dL (70-105); Magnesium 2.2 mg/dL (1.6-2.6); Osmolality,Calculated 290 (280-300); Sodium 136 mEq/L (136-145); eGFR For African Americans > 60 (> 60); eGFR For Non-African Americans 53 (> 60)
[2017-08-09] MEDS: Venlafaxine XR (24 HR) 150 MG CAP.ER.24H PO SCH (08:14)
[2017-08-09] MEDS: predniSONE 20 MG TABLET PO SCH (08:15)
[2017-08-09] MEDS: Loratadine 10 MG TABLET PO SCH (08:15)
[2017-08-09] MEDS: Fluticasone Propionate Nasal 50 MCG/SPRAY BOTTLE NS SCH (08:16)
[2017-08-09] MEDS: Ipratropium/Albuterol Neb 3 ML IH SCH ×3 (10:59→16:01)
--- NOTE | 2017-08-09 11:35 | Internal Med Progress Note ---
Date of Encounter: 08/09/17 Time of Encounter: 11:32 - Assessment and plan (1) COPD exacerbation Current Visit: Yes Status: Acute Assessment and plan: Switch steroids to PO and nebulizer treatment. Nebulizer treatment to q6h patient has home O2 (2) DVT prophylaxis Current Visit: No Status: Acute (3) CHF (congestive heart failure) Current Visit: Yes Status: Chronic Assessment and plan: acute on chronic Diastolic CHF echocardiogram EF 50-55%, improved with lasix Qualifiers: Congestive heart failure type: diastolic Congestive heart failure chronicity: acute on chronic Qualified Code(s): I50.33 - Acute on chronic diastolic (congestive) heart failure (4) Acute respiratory failure with hypoxia Current Visit: Yes Status: Acute Assessment and plan: Improving currently requiring only 2 L of nasal oxygen. (5) Pneumonia Current Visit: Yes Status: Acute Assessment and plan: on levaquin Qualifiers: Pneumonia type: due to unspecified organism Laterality: unspecified laterality Lung location: unspecified part of lung Qualified Code(s): J18.9 - Pneumonia, unspecified organism (6) Urinary tract infection Current Visit: Yes Status: Acute Assessment and plan: Continue current antibiotic regimen with levofloxacin. Qualifiers: Urinary tract infection type: site unspecified Hematuria presence: without hematuria Qualified Code(s): N39.0 - Urinary tract infection, site not specified (7) Physical deconditioning Current Visit: Yes Status: Acute Assessment and plan: Physical therapy and occupational therapy are pending. Expected discharge to SNF if she qualifies for SNF, her daughter agrees - Time Spent With Patient 25 - 35 minutes - Subjective Interval history: Patient is is doing okay on 2 L nasal cannula, she has productive cough with thick white mucus. I discussed was her daughter about to rehabilitation she agrees. Still awaiting full PT and OT. - Constitutional Vitals: Temp Pulse Resp BP Pulse Ox 97.4 F L 60 16 115/74 98 08/09/17 10:32 08/09/17 10:32 08/09/17 10:32 08/09/17 10:32 08/09/17 10:32 General appearance: Present: no acute distress, answers questions appropriately Exam: CONSTITUTIONAL: patient appears as an age appropriate female in no acute distress. EYES Clear sclerae, bilateral pupils are equal, reactive to light. EMOI. RESPIRATORY: No accessory muscle use, bilateral crackles/rales. CARDIOVASCULAR: Regular heart rate, normal S1 and S2, no murmurs GASTROINTESTINAL: bowel sounds present, soft, no tenderness. MUSCULOSKELETAL: Joints in normal range of motion, no clubbing, no edema, no cyanosis. Bilateral peripheral pulses 2+. NEUROLOGIC: CN II to XII are grossly intact, no focal neurological deficit. Internal Medicine: Result - Labs CBC & Chem 7: 08/09/17 05:07 08/09/17 05:07 Labs: Short CBC 08/09/17 Range/Units 05:07 WBC 12.6 H (4.3-11.1) K/mcL Hgb 11.4 L (11.5-15.4) g/dL Hct 35.2 L (35.3-44.9) % Plt Count 168 (140-400) K/mcL Neutrophils # 9.8 H (1.6-8.9) K/mcL BMP 08/09/17 05:07 Sodium 136 Potassium 4.0 Chloride 102 Carbon Dioxide 30 H BUN 33 H Creatinine 0.99 Glucose 106 H Calcium 8.7 Consult Discharge Plan - Plan Referrals: NONE,PCP [Primary Care Provider] -
[2017-08-09 15:31] VITALS: BP 122/54
--- NOTE | 2017-08-09 17:09 | Discharge Summary ---
Date of Encounter: 08/09/17 Time of Encounter: 17:07 - Discharge Diagnosis (1) COPD exacerbation Priority: Secondary Status: Resolved (2) DVT prophylaxis Priority: Secondary Status: Resolved (3) CHF (congestive heart failure) Priority: Secondary Status: Resolved Qualifiers: Congestive heart failure type: diastolic Congestive heart failure chronicity: acute on chronic Qualified Code(s): I50.33 - Acute on chronic diastolic (congestive) heart failure (4) Acute respiratory failure with hypoxia Priority: Secondary Status: Resolved (5) Pneumonia Priority: Primary (improved) Status: Acute Qualifiers: Pneumonia type: due to unspecified organism Laterality: unspecified laterality Lung location: unspecified part of lung Qualified Code(s): J18.9 - Pneumonia, unspecified organism (6) Urinary tract infection Priority: Secondary Status: Resolved Qualifiers: Urinary tract infection type: site unspecified Hematuria presence: without hematuria Qualified Code(s): N39.0 - Urinary tract infection, site not specified (7) Physical deconditioning Priority: Secondary (going to SNF) Status: Acute - Discharge Medications Prescriptions: Levofloxacin [Levaquin] 750 mg PO QMWF 6 Days #3 tablet MDD please give Q48 hours predniSONE [PredniSONE] See Taper PO DAILY 10 Days #30 tablet Home Medications: Carvedilol [Coreg] 25 mg PO BID #0 05/14/15 [History] Ergocalciferol (VITAMIN D2) [Vitamin D2 (50,000 UNIT)] 50,000 unit PO QWEEK #0 05/14/15 [History] Gabapentin [Neurontin] 300 - 600 mg PO HS #0 05/14/15 [History] Montelukast [Singulair] 10 mg PO DAILY #0 05/14/15 [History] Venlafaxine XR (24 HR) [Effexor XR] 150 mg PO DAILY #0 05/14/15 [History] Tiotropium [Spiriva] 18 mcg IH DAILYR 30 Days inh 07/18/15 [Rx] Omeprazole [PriLOSEC] 20 mg PO DAILY 02/05/16 [History] Cetirizine HCl [Zyrtec] 10 mg PO DAILY #14 capsule 04/11/17 [Rx] Buspirone HCl [Buspar] 5 mg PO BID 08/03/17 [History] Fluticasone Propionate Nasal [Flonase] 1 spray NS DAILY 08/03/17 [History] Irbesartan [Avapro] 150 mg PO DAILY 08/03/17 [History] Levofloxacin [Levaquin] 750 mg PO QMWF 6 Days #3 tablet MDD please give Q48 hours 08/09/17 [Rx] predniSONE [PredniSONE] See Taper PO DAILY 10 Days #30 tablet 08/09/17 [Rx] Allergies/Adverse Reactions: 3 Allergy/AdvReac Type Severity Reaction Status Date / Time Penicillins Allergy Hives Verified 09/09/16 14:39 Date of admission: 08/04/17 05:46 Primary care physician: PCP NONE Consults: 08/06/17 17:01 Consult to Occupational Therapy [CONS] Routine Comment: Evaluate, develop and implement POC Reason for Consult: weakness Consult to Physical Therapy [CONS] Routine Comment: Evaluate, develop and implement POC Reason for Consult: weakness Discharging clinician: Isa Arizmendi Anticipated date of discharge: 08/09/17 - Patient Status Disposition: Transfer SNF Functional capacity at discharge: uses cane/walker Overall status at discharge: patient is not back to baseline - Discharge Instructions Follow Up With: NONE,PCP [Primary Care Provider] - Hospital course: Mrs. Josehp is an 87-year-old woman with a history of COPD, CHF, ED status post AICD placement, dementia who presents the ED with 3 days of worsening dyspnea and cough with productive sputum. In the ED she was treated for COPD exacerbation and CHF with Solu Medrol and Lasix 20 mg IV once. Patient is currently in no acute distress. EKG was unchanged since a past one done in 2016. Chest x-ray showed pneumonia. She has a documented elevated temperature 100.3. BNP elevated at 1233, 17 days ago was 834. patient was admitted for COPD exacerbation and CHF exacerbation on 08/04. she improved with ATB abd steroids, Lasix, on 2 L NC home level O2. PT recommended SNF, patient is discharged on mstable condition to SNF (1) COPD exacerbation Current Visit: Yes Status: Acute Assessment and plan: Switch steroids to PO and nebulizer treatment. Nebulizer treatment to q6h patient has home O2 (2) DVT prophylaxis Current Visit: No Status: Acute (3) CHF (congestive heart failure) Current Visit: Yes Status: Chronic Assessment and plan: acute on chronic Diastolic CHF echocardiogram EF 50-55%, improved with lasix Qualifiers: Congestive heart failure type: diastolic Congestive heart failure chronicity: acute on chronic Qualified Code(s): I50.33 - Acute on chronic diastolic (congestive) heart failure (4) Acute respiratory failure with hypoxia Current Visit: Yes Status: Acute Assessment and plan: Improving currently requiring only 2 L of nasal oxygen. (5) Pneumonia Current Visit: Yes Status: Acute Assessment and plan: on levaquin Qualifiers: Pneumonia type: due to unspecified organism Laterality: unspecified laterality Lung location: unspecified part of lung Qualified Code(s): J18.9 - Pneumonia, unspecified organism (6) Urinary tract infection Current Visit: Yes Status: Acute Assessment and plan: Continue current antibiotic regimen with levofloxacin. Qualifiers: Urinary tract infection type: site unspecified Hematuria presence: without hematuria Qualified Code(s): N39.0 - Urinary tract infection, site not specified (7) Physical deconditioning Current Visit: Yes Status: Acute Assessment and plan: SNF Time spent discussing smoking cessation with patient: more than 10 minutes - Time Spent with Patient Total time spent providing and/or coordinating discharge services: Greater than 30 minutes - Constitutional Vitals: Temp Pulse Resp BP Pulse Ox 97.8 F 64 16 122/54 95 08/09/17 15:30 08/09/17 15:30 08/09/17 15:30 08/09/17 15:30 08/09/17 15:30 General appearance: Present: no acute distress, answers questions appropriately - Head Head exam: Present: atraumatic, normocephalic - Neck Neck exam general surgery: Present: supple, trachea midline. Absent: lymphadenopathy - Respiratory Respiratory exam: Present: decreased breath sounds, rhonchi - Cardiovascular Cardiovascular exam: Present: RRR, +S1, +S2. Absent: diastolic murmur, gallop, rubs, systolic murmur - GI/Abdominal GI/Abdominal exam: Present: normal bowel sounds, soft, no peritoneal signs. Absent: distended, tenderness - Extremities Exam Extremities exam: Present: warm, radial pulses palpable and symmetrical. Absent : calf tenderness, cyanotic, pedal edema - Neurological Exam Neurological exam: Present: CN II-XII intact, oriented X3, no focal deficits. Absent: pronater drift, facial droop, speech deficit - Skin Skin exam: Present: dry, intact
--- NOTE | 2017-08-09 17:34 | Physician Discharge Referral ---
[facility] Referral Info Provider in Charge after Transfer: PCP Institutional Level of Care: Skilled (SNF) - Diagnosis (1) COPD exacerbation Priority: Secondary Status: Resolved (2) CHF (congestive heart failure) Priority: Secondary Status: Resolved (3) Acute respiratory failure with hypoxia Priority: Secondary Status: Resolved (4) Pneumonia Priority: Primary Status: Resolved (5) Urinary tract infection Priority: Secondary Status: Resolved (6) Physical deconditioning Priority: Secondary Status: Acute Prognosis: Fair Aware of Diagnosis: Family Aware of Prognosis: Family - Transfer Medications Prescriptions: Levofloxacin [Levaquin] 750 mg PO QMWF 6 Days #3 tablet MDD please give Q48 hours predniSONE [PredniSONE] See Taper PO DAILY 10 Days #30 tablet Home Medications: Carvedilol [Coreg] 25 mg PO BID #0 05/14/15 [History] Ergocalciferol (VITAMIN D2) [Vitamin D2 (50,000 UNIT)] 50,000 unit PO QWEEK #0 05/14/15 [History] Gabapentin [Neurontin] 300 - 600 mg PO HS #0 05/14/15 [History] Montelukast [Singulair] 10 mg PO DAILY #0 05/14/15 [History] Venlafaxine XR (24 HR) [Effexor XR] 150 mg PO DAILY #0 05/14/15 [History] Tiotropium [Spiriva] 18 mcg IH DAILYR 30 Days inh 07/18/15 [Rx] Omeprazole [PriLOSEC] 20 mg PO DAILY 02/05/16 [History] Cetirizine HCl [Zyrtec] 10 mg PO DAILY #14 capsule 04/11/17 [Rx] Buspirone HCl [Buspar] 5 mg PO BID 08/03/17 [History] Fluticasone Propionate Nasal [Flonase] 1 spray NS DAILY 08/03/17 [History] Irbesartan [Avapro] 150 mg PO DAILY 08/03/17 [History] Levofloxacin [Levaquin] 750 mg PO QMWF 6 Days #3 tablet MDD please give Q48 hours 08/09/17 [Rx] predniSONE [PredniSONE] See Taper PO DAILY 10 Days #30 tablet 08/09/17 [Rx] Allergies/Adverse Reactions: 3 Allergy/AdvReac Type Severity Reaction Status Date / Time Penicillins Allergy Hives Verified 01/26/17 14:39 - Respiratory Orders Oxygen / L per min (2 L NC continuous home O2) Smoking Cessation: Smoking cessation has been advised. For more information, call the [place] Tobacco Quit Line at 4-765-IEIN-NOW. - Advance Directives Code Status: Full Code - Rehabiliation Orders Rehab Potential: Fair CERTIFICATION: I certify that the transfer of the above named patient to an Extended Care Facility is necessary for the continuing treatment of the diagnosis listed. The above information is true and accurate reflection of patient's current condition. Confidential - Redisclosure prohibited without a patient's written consent.
[2017-08-10] MEDS ORDERED: levoFLOXacin 750 MG TABLET PO SCH (09:00)
== END 2017-08-09 18:52 | DRG 190 ==
LOC: 3ANU 18:17 → EMEROO 18:17 → 3ANU 22:05 → SUATTDRO 08-04 05:46
PROVIDERS: ADMIT Student in an Organized Health Care Education/Training Program; ATTEND Hospitalist

== ENCOUNTER 2018-01-16 11:47 | Inpatient (IN) ==
--- NOTE | 2018-01-16 11:58 | Emergency Department Note ---
Disposition Clinical Impression: YOLANDA (acute kidney injury), Dehydration, Elevated troponin Disposition: Admitted As Inpatient Condition: Fair General Adult HPI - General Stated complaint: general Time Seen by Provider: 01/16/18 11:50 - Related Data Home Medications Medication Instructions Recorded Confirmed Buspirone HCl [Buspar] 5 mg PO BID 01/16/18 01/16/18 Carvedilol [Coreg] 25 mg PO BID 01/16/18 01/16/18 Cetirizine HCl [All Day Allergy] 10 mg PO DAILY 01/16/18 01/16/18 DiphenhydraMINE [Benadryl] 25 mg PO BID PRN 01/16/18 01/16/18 Docusate [Colace] 100 mg PO DAILY PRN 01/16/18 01/16/18 Ergocalciferol (VITAMIN D2) 50,000 unit PO QWEEK 01/16/18 01/16/18 [Vitamin D2] Fluticasone Propionate Nasal 1 spr NS DAILY 01/16/18 01/16/18 [Flonase] Furosemide [Lasix] 40 mg PO DAILY 01/16/18 01/16/18 Irbesartan [Avapro] 150 mg PO DAILY 01/16/18 01/16/18 Montelukast [Singulair] 10 mg PO DAILY 01/16/18 01/16/18 Potassium Chloride [K-Tab ER] 20 meq PO DAILY 01/16/18 01/16/18 Allergies Allergy/AdvReac Type Severity Reaction Status Date / Time Penicillins Allergy Hives Verified 09/09/16 14:39 Past Medical History - Past Medical History Medical history: Reports: asthma, CHF, COPD, DVT, hypertension, TIA Surgical history: Reports: appendectomy, cholecystectomy, pacemaker/AICD Psychiatric history: Reports: anxiety, bipolar, depression [employer] history: Reports: no [employer] history, other - Social History Smoking Status: Former smoker Smokeless Tobacco Status: No Alcohol use: Reports: none Drug use: Reports: none Course Vital Signs Temperature 98.0 F 01/16/18 12:28 Pulse Rate 63 01/16/18 12:28 Respiratory Rate 18 01/16/18 12:28 Blood Pressure 103/63 01/16/18 12:28 O2 Sat by Pulse Oximetry 98 01/16/18 12:28 Temperature 97.5 F L 01/16/18 19:58 Pulse Rate 63 01/16/18 19:58 Respiratory Rate 16 01/16/18 19:58 Blood Pressure 100/48 01/16/18 19:58 O2 Sat by Pulse Oximetry 90 01/16/18 19:58 Oxygen Delivery Oxygen Delivery Nasal Cannula Medical Decision Making - Lab Data Result diagrams: 01/16/18 12:20 01/16/18 12:20 Lab Results 01/16/18 01/16/18 01/16/18 Range/Units 12:20 12:20 12:20 WBC 10.2 (4.3-11.1) K/mcL RBC 3.91 (3.82-4.97) M/mcL Hgb 10.4 L (11.5-15.4) g/dL Hct 33.7 L (35.3-44.9) % MCV 86.2 (83.0-100.0) fL MCH 26.6 L (28.0-33.3) pg MCHC 30.9 L (31.6-35.5) g/dL RDW 14.2 (11.5-14.5) % Plt Count 208 (140-400) K/mcL MPV 10.6 (9.4-12.4) fL Immature Gran % 0.4 (0-4) % Seg Neutrophils % 67.1 % Lymphocytes % 22.6 % Monocytes % 6.8 % Eosinophils % 2.3 % Basophils % 0.8 % Neutrophils # 6.9 (1.6-8.9) K/mcL Lymphocytes # 2.3 (0.6-4.6) K/mcL Monocytes # 0.7 (0.0-1.3) K/mcL Eosinophils # 0.2 (0.0-0.6) K/mcL Basophils # 0.1 (0.0-0.2) K/mcL PT 13.7 H (9.4-12.1) Seconds INR 1.3 Sodium 138 (136-145) mEq/L Potassium 4.4 (3.5-5.1) mEq/L Chloride 99 (98-107) mEq/L Carbon Dioxide 30 H (23-29) mEq/L BUN 29 H (8-23) mg/dL Creatinine 2.51 H (0.60-1.20) mg/dL Est GFR ( Amer) 22 L (> 60) Est GFR (Non-Af Amer) 18 L (> 60) BUN/Creatinine Ratio 12 (6-26) Glucose 88 (70-105) mg/dL POC Glucose (70-99) mg/dL Calculated Osmolality 291 (280-300) Uric Acid 9.2 H (2.3-7.6) mg/dL Calcium 9.2 (8.6-10.3) mg/dL Magnesium 1.9 (1.6-2.6) mg/dL Total Bilirubin 0.5 (0.3-1.0) mg/dL AST 23 (13-39) Units/L ALT 9 (7-52) Units/L Alkaline Phosphatase 70 (34-104) Units/L Troponin I 0.05 H* (< 0.04) ng/mL Serum Total Protein 6.2 L (6.4-8.9) g/dL Albumin 3.4 L (3.5-5.7) g/dL Globulin 2.8 (2.4-3.5) g/dL Albumin/Globulin Ratio 1.2 (1.1-2.2) Ur Specimen Adequacy Urine Color (Yellow) Urine Clarity (Clear) Urine pH (5.0-8.0) pH Units Ur Specific [place] (1.010-1.025) Urine Protein (Neg-Trace) mg/dL Urine Glucose (UA) (Normal) mg/dL Urine Ketones (Negative) mg/dL Urine Blood (Negative) Urine Nitrite (Negative) Urine Bilirubin (Negative) Urine Urobilinogen (Normal) mg/dL Ur Leukocyte Esterase (Negative) Urine Microscopic RBC (0-3) per hpf Urine Microscopic WBC (0-3) per hpf Ur Squamous Epith Cells (None-Few) per lpf Urine Bacteria (None-Few) per hpf 01/16/18 01/16/18 Range/Units 12:38 14:08 WBC (4.3-11.1) K/mcL RBC (3.82-4.97) M/mcL Hgb (11.5-15.4) g/dL Hct (35.3-44.9) % MCV (83.0-100.0) fL MCH (28.0-33.3) pg MCHC (31.6-35.5) g/dL RDW (11.5-14.5) % Plt Count (140-400) K/mcL MPV (9.4-12.4) fL Immature Gran % (0-4) % Seg Neutrophils % % Lymphocytes % % Monocytes % % Eosinophils % % Basophils % % Neutrophils # (1.6-8.9) K/mcL Lymphocytes # (0.6-4.6) K/mcL Monocytes # (0.0-1.3) K/mcL Eosinophils # (0.0-0.6) K/mcL Basophils # (0.0-0.2) K/mcL PT (9.4-12.1) Seconds INR Sodium (136-145) mEq/L Potassium (3.5-5.1) mEq/L Chloride (98-107) mEq/L Carbon Dioxide (23-29) mEq/L BUN (8-23) mg/dL Creatinine (0.60-1.20) mg/dL Est GFR ( Amer) (> 60) Est GFR (Non-Af Amer) (> 60) BUN/Creatinine Ratio (6-26) Glucose (70-105) mg/dL POC Glucose 83 (70-99) mg/dL Calculated Osmolality (280-300) Uric Acid (2.3-7.6) mg/dL Calcium (8.6-10.3) mg/dL Magnesium (1.6-2.6) mg/dL Total Bilirubin (0.3-1.0) mg/dL AST (13-39) Units/L ALT (7-52) Units/L Alkaline Phosphatase (34-104) Units/L Troponin I (< 0.04) ng/mL Serum Total Protein (6.4-8.9) g/dL Albumin (3.5-5.7) g/dL Globulin (2.4-3.5) g/dL Albumin/Globulin Ratio (1.1-2.2) Ur Specimen Adequacy See below A Urine Color Yellow (Yellow) Urine Clarity Cloudy A (Clear) Urine pH 5.5 (5.0-8.0) pH Units Ur Specific [place] >= 1.030 H (1.010-1.025) Urine Protein >=300 H (Neg-Trace) mg/dL Urine Glucose (UA) Normal (Normal) mg/dL Urine Ketones Trace H (Negative) mg/dL Urine Blood Moderate H (Negative) Urine Nitrite Negative (Negative) Urine Bilirubin Moderate H (Negative) Urine Urobilinogen Normal (Normal) mg/dL Ur Leukocyte Esterase Trace H (Negative) Urine Microscopic RBC 5-15 H (0-3) per hpf Urine Microscopic WBC 3-5 H (0-3) per hpf Ur Squamous Epith Cells Few (None-Few) per lpf Urine Bacteria Few (None-Few) per hpf Attestation Statement - Attestation Attestation: I examined this patient and my medical decision-making was reviewed with the Resident Physician. I agree with the documented findings, disposition and treatment plan as described except to the extent set forth below. [id number] time provided Patient arrives from home by ambulance. It was reported that the patient is generally weak and not eating or drinking since her recent discharge from [facility] for CHF. The patient appears in no acute distress. She is demented and oriented to person and place but confused to the year. Patient evaluated in conjunction with the resident physician Dr. Epstein
--- NOTE | 2018-01-16 12:22 | Emergency Department Note ---
Disposition Clinical Impression: YOLANDA (acute kidney injury), Dehydration, Elevated troponin Disposition: Admitted As Inpatient Condition: Fair Time of Disposition: 14:57 General Adult HPI - General Stated complaint: general Time Seen by Provider: 01/16/18 11:50 Source: patient, EMS Mode of arrival: EMS Limitations: no limitations Nursing Notes Reviewed: Yes Vital Signs Reviewed: Yes - History of Present Illness HPI Narrative: Patient is an 87-year-old female with a past medical history of CHF, COPD, HTN, DVT, TIA, pacemaker/AICD, bipolar, depression and dementia presenting for evaluation of generalized weakness. The patient was discharged from [facility] on 01/18/2018 after being treated for a CHF exacerbation. She lives at home with family family states that the patient was doing well however today there was that the patient was weaker than usual. They state that whenever the patient stood up she became lethargic and weak and was not able to support herself. States that she also has not been as mobile as she has been in the past. She is usually able to [place] on her own around the home. The family does state a concern that the patient has not been urinating as much as usual. She is incontinent of urine and requires depends. The patient herself is oriented to person and place however not year. She denies any symptoms at this time. She states that she is thirsty. Per the squad the patient had an episode of lethargy after standing up prior to arrival in which they checked her vital signs are blood pressure systolic was 100 she was treated with a small fluid bolus and her symptoms improved immediately after. - Related Data Home Medications Medication Instructions Recorded Confirmed Cetirizine HCl [All Day Allergy] 10 mg PO DAILY 01/16/18 01/16/18 DiphenhydraMINE [Benadryl] 25 mg PO BID PRN 01/16/18 01/16/18 Ergocalciferol (VITAMIN D2) 50,000 unit PO QWEEK 01/16/18 01/16/18 [Vitamin D2] Irbesartan [Avapro] 150 mg PO DAILY 01/16/18 01/16/18 Potassium Chloride [K-Tab ER] 20 meq PO DAILY 01/16/18 01/16/18 RX: Buspirone HCl [Buspar] 5 mg PO BID 01/16/18 01/16/18 RX: Carvedilol [Coreg] 25 mg PO BID 01/16/18 01/16/18 RX: Docusate [Colace] 100 mg PO DAILY PRN 01/16/18 01/16/18 RX: Fluticasone Propionate Nasal 1 spr NS DAILY 01/16/18 01/16/18 [Flonase] RX: Furosemide [Lasix] 40 mg PO DAILY 01/16/18 01/16/18 RX: Montelukast [Singulair] 10 mg PO DAILY 01/16/18 01/16/18 Allergies Allergy/AdvReac Type Severity Reaction Status Date / Time Penicillins Allergy Hives Verified 09/09/16 14:39 All systems ED: reviewed and negative except as stated. Review of Systems: As Per HPI Constitutional: Denies: fever, chills ENT ED: Denies: congestion Past Medical History - Past Medical History Attestation: Yes The following information was validated with the patient. Medical history: Reports: asthma, CHF, COPD, DVT, hypertension, TIA Surgical history: Reports: appendectomy, cholecystectomy, pacemaker/AICD Psychiatric history: Reports: anxiety, bipolar, depression [employer] POS[employer] history: Reports: no [employer] history, other - Social History Smoking Status: Former smoker Smokeless Tobacco Status: No Alcohol use: Reports: none Drug use: Reports: none Physical Exam VITAL SIGNS: Within normal limits except for patient's blood pressure is low at systolic 103 and oxygen saturation is currently 94% on 1 L nasal cannula. Patient requires 2 L nasal cannula at night for sleep. CONSTITUTIONAL: Alert and oriented X2, well-nourished, well appearing, in no apparent distress. HEAD: Normocephalic; atraumatic. Mucous membranes dry. EYES: PERRL, no scleral icterus. NOSE: The nose is normal in appearance without rhinorrhea RESP: Normal chest excursion with respiration; breath sounds are slightly diminished, however no rales, rhonchi or wheezing bilaterally. No respiratory distress. CARD: Regular rhythm, without murmurs, rub or gallop ABD: Non-distended; non-tender, soft,without rigidity, rebound or guarding SKIN: Normal for age and race; warm and dry; no apparent lesions EXT: Symmetrical bilaterally with no edema. Pulses palpable at 2+ in all extremities. No calf tenderness. - General Limitations: no limitations - Head Head exam: normocephalic Course Course Narrative: Patient is a 87-year-old female recently discharged from hospital for acute CHF exacerbation. According to her records her CT scan showed significant CHF and her BNP was elevated in the 7000. Since being discharged patient has become lethargic and less mobile than before. Family states patient has not had any urine output. Patient herself is requesting water to drink. Given patient's recent weakness plan is to evaluate for UTI, pneumonia, [place], CHF, COPD, stroke, vs dehydration. 14:57: Updated patient's family present in room. Patient remains stable. Discussed YOLANAD and dehydration. Patient received 500mL bolus. Patient has elevated troponin of 0.05, however in the setting of Dehydration, YOLANDA, and no EKG changes I believe this is more likely demand ischemia vs YOLANDA. Patient urine was negative for infection, will send for culture. Patient admitted to the hospital. Vital Signs Temperature 98.0 F 01/16/18 12:28 Pulse Rate 63 01/16/18 12:28 Respiratory Rate 18 01/16/18 12:28 Blood Pressure 103/63 01/16/18 12:28 O2 Sat by Pulse Oximetry 98 01/16/18 12:28 Temperature 98.0 F 01/16/18 12:28 Pulse Rate 60 01/16/18 13:30 Respiratory Rate 18 01/16/18 13:30 Blood Pressure 135/56 01/16/18 13:30 O2 Sat by Pulse Oximetry 99 01/16/18 13:30 Oxygen Delivery Oxygen Delivery Nasal Cannula Medical Decision Making - Medical Records Medical records reviewed: Yes I reviewed the patient's medical records. - Lab Data Lab results reviewed: Yes I reviewed the patient's lab results. Result diagrams: 01/16/18 12:20 01/16/18 12:20 Lab Results 01/16/18 01/16/18 01/16/18 Range/Units 12:20 12:20 12:20 WBC 10.2 (4.3-11.1) K/mcL RBC 3.91 (3.82-4.97) M/mcL Hgb 10.4 L (11.5-15.4) g/dL Hct 33.7 L (35.3-44.9) % MCV 86.2 (83.0-100.0) fL MCH 26.6 L (28.0-33.3) pg MCHC 30.9 L (31.6-35.5) g/dL RDW 14.2 (11.5-14.5) % Plt Count 208 (140-400) K/mcL MPV 10.6 (9.4-12.4) fL Immature Gran % 0.4 (0-4) % Seg Neutrophils % 67.1 % Lymphocytes % 22.6 % Monocytes % 6.8 % Eosinophils % 2.3 % Basophils % 0.8 % Neutrophils # 6.9 (1.6-8.9) K/mcL Lymphocytes # 2.3 (0.6-4.6) K/mcL Monocytes # 0.7 (0.0-1.3) K/mcL Eosinophils # 0.2 (0.0-0.6) K/mcL Basophils # 0.1 (0.0-0.2) K/mcL PT 13.7 H (9.4-12.1) Seconds INR 1.3 Sodium 138 (136-145) mEq/L Potassium 4.4 (3.5-5.1) mEq/L Chloride 99 (98-107) mEq/L Carbon Dioxide 30 H (23-29) mEq/L BUN 29 H (8-23) mg/dL Creatinine 2.51 H (0.60-1.20) mg/dL Est GFR ( Amer) 22 L (> 60) Est GFR (Non-Af Amer) 18 L (> 60) BUN/Creatinine Ratio 12 (6-26) Glucose 88 (70-105) mg/dL Calculated Osmolality 291 (280-300) Calcium 9.2 (8.6-10.3) mg/dL Magnesium 1.9 (1.6-2.6) mg/dL Total Bilirubin 0.5 (0.3-1.0) mg/dL AST 23 (13-39) Units/L ALT 9 (7-52) Units/L Alkaline Phosphatase 70 (34-104) Units/L Troponin I 0.05 H* (< 0.04) ng/mL Serum Total Protein 6.2 L (6.4-8.9) g/dL Albumin 3.4 L (3.5-5.7) g/dL Globulin 2.8 (2.4-3.5) g/dL Albumin/Globulin Ratio 1.2 (1.1-2.2) Ur Specimen Adequacy Urine Color (Yellow) Urine Clarity (Clear) Urine pH (5.0-8.0) pH Units Ur Specific [place] (1.010-1.025) Urine Protein (Neg-Trace) mg/dL Urine Glucose (UA) (Normal) mg/dL Urine Ketones (Negative) mg/dL Urine Blood (Negative) Urine Nitrite (Negative) Urine Bilirubin (Negative) Urine Urobilinogen (Normal) mg/dL Ur Leukocyte Esterase (Negative) Urine Microscopic RBC (0-3) per hpf Urine Microscopic WBC (0-3) per hpf Ur Squamous Epith Cells (None-Few) per lpf Urine Bacteria (None-Few) per hpf 01/16/18 Range/Units 14:08 WBC (4.3-11.1) K/mcL RBC (3.82-4.97) M/mcL Hgb (11.5-15.4) g/dL Hct (35.3-44.9) % MCV (83.0-100.0) fL MCH (28.0-33.3) pg MCHC (31.6-35.5) g/dL RDW (11.5-14.5) % Plt Count (140-400) K/mcL MPV (9.4-12.4) fL Immature Gran % (0-4) % Seg Neutrophils % % Lymphocytes % % Monocytes % % Eosinophils % % Basophils % % Neutrophils # (1.6-8.9) K/mcL Lymphocytes # (0.6-4.6) K/mcL Monocytes # (0.0-1.3) K/mcL Eosinophils # (0.0-0.6) K/mcL Basophils # (0.0-0.2) K/mcL PT (9.4-12.1) Seconds INR Sodium (136-145) mEq/L Potassium (3.5-5.1) mEq/L Chloride (98-107) mEq/L Carbon Dioxide (23-29) mEq/L BUN (8-23) mg/dL Creatinine (0.60-1.20) mg/dL Est GFR ( Amer) (> 60) Est GFR (Non-Af Amer) (> 60) BUN/Creatinine Ratio (6-26) Glucose (70-105) mg/dL Calculated Osmolality (280-300) Calcium (8.6-10.3) mg/dL Magnesium (1.6-2.6) mg/dL Total Bilirubin (0.3-1.0) mg/dL AST (13-39) Units/L ALT (7-52) Units/L Alkaline Phosphatase (34-104) Units/L Troponin I (< 0.04) ng/mL Serum Total Protein (6.4-8.9) g/dL Albumin (3.5-5.7) g/dL Globulin (2.4-3.5) g/dL Albumin/Globulin Ratio (1.1-2.2) Ur Specimen Adequacy See below A Urine Color Yellow (Yellow) Urine Clarity Cloudy A (Clear) Urine pH 5.5 (5.0-8.0) pH Units Ur Specific [place] >= 1.030 H (1.010-1.025) Urine Protein >=300 H (Neg-Trace) mg/dL Urine Glucose (UA) Normal (Normal) mg/dL Urine Ketones Trace H (Negative) mg/dL Urine Blood Moderate H (Negative) Urine Nitrite Negative (Negative) Urine Bilirubin Moderate H (Negative) Urine Urobilinogen Normal (Normal) mg/dL Ur Leukocyte Esterase Trace H (Negative) Urine Microscopic RBC 5-15 H (0-3) per hpf Urine Microscopic WBC 3-5 H (0-3) per hpf Ur Squamous Epith Cells Few (None-Few) per lpf Urine Bacteria Few (None-Few) per hpf - Radiology Data Radiology results reviewed: Yes I reviewed the patient's radiology results. - EKG Data EKG #1 EKG attestation: Yes I reviewed and interpreted this EKG. EKG results narrative: EKG done at 12:32 shows electronic ventricular paced rhythm. EKG is unchanged from EKG that was done on August [id number].
[2018-01-16 12:46] LABS: Basophils # 0.1 K/mcL (0.0-0.2); Basophils % 0.8 %; Eosinophils # 0.2 K/mcL (0.0-0.6); Eosinophils % 2.3 %; Hematocrit 33.7 % (35.3-44.9); Hemoglobin 10.4 g/dL (11.5-15.4); Immature Granulocytes % 0.4 % (0-4); Lymphocytes # 2.3 K/mcL (0.6-4.6); Lymphocytes % 22.6 %; Mean Corpuscular HGB Conc 30.9 g/dL (31.6-35.5); Mean Corpuscular Hemoglobin 26.6 pg (28.0-33.3); Mean Corpuscular Volume 86.2 fL (83.0-100.0); Mean Platelet Volume 10.6 fL (9.4-12.4); Monocytes # 0.7 K/mcL (0.0-1.3); Monocytes % 6.8 %; Neutrophils # 6.9 K/mcL (1.6-8.9); Platelet Count 208 K/mcL (140-400); Red Blood Count 3.91 M/mcL (3.82-4.97); Red Cell Distribution Width 14.2 % (11.5-14.5); Segmented Neutrophils % 67.1 %
[2018-01-16 12:52] LABS: INR 1.3; Prothrombin Time 13.7 Seconds (9.4-12.1)
[2018-01-16 13:08] LABS: Albumin 3.4 g/dL (3.5-5.7); Albumin/Globulin Ratio 1.2 (1.1-2.2); Bilirubin,Total 0.5 mg/dL (0.3-1.0); Calcium 9.2 mg/dL (8.6-10.3); Globulin 2.8 g/dL (2.4-3.5); Magnesium 1.9 mg/dL (1.6-2.6); Potassium 4.4 mEq/L (3.5-5.1); Total Protein 6.2 g/dL (6.4-8.9)
[2018-01-16] MEDS ORDERED: 0.9 % Sodium Chloride 500 ML IVC ONE ×2 (13:14→16:46)
[2018-01-16 13:17] LABS: Troponin I 0.05 ng/mL (< 0.04)
[2018-01-16 14:24] LABS: Bilirubin,Urine Moderate (Negative); Blood,Urine Moderate (Negative); Clarity,Urine Cloudy (Clear); Glucose,Urine (UA) Normal (Normal); Ketones,Urine Trace mg/dL (Negative); Leukocyte Esterase,Urine Trace (Negative); Nitrite,Urine Negative (Negative); PH,Urine 5.5 pH Units (5.0-8.0); Protein,Urine >=300 mg/dL (Neg-Trace); Specific Gravity,Urine >= 1.030 (1.010-1.025); Urobilinogen,Urine Normal (Normal)
[2018-01-16 14:25] LABS: Color,Urine Yellow (Yellow)
[2018-01-16 14:28] LABS: Bacteria,Urine Few per hpf (None-Few); Squamous Epithelial Cell,Urine Few per lpf (None-Few)
[2018-01-16] MEDS ORDERED: Acetaminophen 325 MG TABLET PO PRN (15:26)
[2018-01-16] MEDS ORDERED: Naloxone 0.4 MG/ML INJ IVP PRN (15:26)
--- NOTE | 2018-01-16 15:36 | Internal Med History&Physical ---
<Brandy Rolon - Last Filed: 01/16/18 16:28> Date of Encounter: 01/16/18 Time of Encounter: 15:36 Internal Medicine - H&P: HPI Chief complaint: Weakness/YOLANDA Admitted From: Emergency Dept History of present illness: Ms. Joseph is a 87 year old female with a past medical history of CHF, COPD on 2 L nasal cannula in the evening and sometimes during the day, HTN, TIA, pacemaker /AICD, bipolar, depression and dementia presenting for evaluation of generalized weakness. The patient was discharged from [facility] one day ago after being treated for a CHF exacerbation. According to family at bedside patient has been weaker than normal since her admission. According to them she is normally able to use her walker to get from room to room but has been unable to walk by herself recently. They also state she has not had any urine output since being at home. Patient has not wanted to eat or drink and has been overall weak. Patient has not stated she has any chest pain, shortness of breath or dizziness. The patient herself is oriented to person and place however not year. She denies any symptoms at this time. Past Med Surg Social Fam HX - Past Medical History Medical history: asthma, CHF, COPD, DVT, hypertension, TIA Additional medical history: pacemaker, Psychiatric history: anxiety, bipolar, depression - Past Surgical History Surgical History: appendectomy, cholecystectomy, pacemaker/AICD Additional surgical history: BACK SURGERY - Social History Smoking Status: Former smoker Smokeless Tobacco Status: No Alcohol use: none Drug use: none - Family History Mother Living Status: Hx Family Cardiac Disorders: Yes Father Living Status: Hx Family Cardiac Disorders: Yes Hx Family Cancer: Yes Internal Medicine - H&P: Meds Buspirone HCl [Buspar] 5 mg PO BID 01/16/18 [History] Carvedilol [Coreg] 25 mg PO BID 01/16/18 [History] Cetirizine HCl [All Day Allergy] 10 mg PO DAILY 01/16/18 [History] DiphenhydraMINE [Benadryl] 25 mg PO BID PRN 01/16/18 [History] Docusate [Colace] 100 mg PO DAILY PRN 01/16/18 [History] Ergocalciferol (VITAMIN D2) [Vitamin D2] 50,000 unit PO QWEEK 01/16/18 [History] Fluticasone Propionate Nasal [Flonase] 1 spr NS DAILY 01/16/18 [History] Furosemide [Lasix] 40 mg PO DAILY 01/16/18 [History] Irbesartan [Avapro] 150 mg PO DAILY 01/16/18 [History] Montelukast [Singulair] 10 mg PO DAILY 01/16/18 [History] Potassium Chloride [K-Tab ER] 20 meq PO DAILY 01/16/18 [History] 3 Allergy/AdvReac Type Severity Reaction Status Date / Time Penicillins Allergy Hives Verified 09/09/16 14:39 All Systems PM: A 10-system review of systems was performed and is negative for pertinent findings except as documented above in the HPI. - Constitutional Constitutional: fatigue, weakness, no fever(s) - EENT Nose, mouth and throat: dry mouth, no throat swelling, no tongue swelling - Cardiovascular Cardiovascular ROS IM: no chest pain, no dyspnea, no syncope - Respiratory Respiratory: no cough, no dyspnea, no wheezing - Gastrointestinal Gastrointestinal: no abdominal pain, no diarrhea, no vomiting - Neurological Neurological ROS: weakness, no dizziness, no focal weakness - Constitutional Vitals: Temp Pulse Resp BP Pulse Ox 98.0 F 60 18 135/56 99 01/16/18 12:28 01/16/18 13:30 01/16/18 13:30 01/16/18 13:30 01/16/18 13:30 General appearance: Present: A&O X 2, no acute distress - Head Head exam: Present: atraumatic, normal inspection, normocephalic - ENT ENT exam: Present: mucous membranes dry, normal oropharynx - Respiratory Respiratory exam: Present: decreased breath sounds. Absent: accessory muscle use, chest wall tenderness, respiratory distress - Cardiovascular Cardiovascular exam: Present: RRR - GI/Abdominal GI/Abdominal exam: Present: soft. Absent: guarding, rigid, tenderness - Extremities Exam Extremities exam: Present: warm. Absent: pedal edema, tenderness - Neurological Exam Neurological exam: Present: alert, no focal deficits Internal Med - H&P Results - Labs CBC & Chem 7: 01/16/18 12:20 01/16/18 12:20 - Assessment and plan (1) YOLANDA (acute kidney injury) Current Visit: Yes Status: Acute Assessment and plan: Creatnine 2.51. New onset. Most likely due to medication including lasix and arb. Family reports patient had CT at outside hospital. Unknown if contrast was administered therefore that can also be considered a possible cause. Proteinuria and hematuria therefore also working up for intrinsic renal disease for further lab analysis and retroperitoneal ultrasound. (2) Dehydration Current Visit: Yes Status: Acute Assessment and plan: Patient dry on exam. No urine output in hui placed in ED. Patient given 500ml bolus in ED. Will cautiously add fluid to patient at 125 ml/hr for 2 liters. Repeat BMP in AM (3) Elevated troponin Current Visit: Yes Status: Acute Assessment and plan: Most likely due to YOLANDA. Will continue to trend. Patient denies chest pain or pressure. (4) Essential hypertension Current Visit: Yes Status: Chronic Assessment and plan: Patient at coreg at this time. BP controlled in ED. Continue home meds (5) Dementia Current Visit: Yes Status: Chronic Assessment and plan: Ordered haldol for patient's delirium PRN. Patient has a history of delirium Qualifiers: Dementia type: unspecified type Dementia behavioral disturbance: with behavioral disturbance Qualified Code(s): F03.91 - Unspecified dementia with behavioral disturbance (6) Bipolar disorder Current Visit: Yes Status: Chronic Assessment and plan: Continue home medication Qualifiers: Active/Remission status: remission status unspecified Qualified Code(s): F31.9 - Bipolar disorder, unspecified (7) Depression Current Visit: Yes Status: Chronic Assessment and plan: Continue home medication Qualifiers: Depression Type: unspecified Qualified Code(s): F32.9 - Major depressive disorder, single episode, unspecified (8) Aortic stenosis Current Visit: Yes Status: Acute Assessment and plan: Moderate found on echo in 2017. Qualifiers: Cardiac valve disease etiology: etiology unspecified Qualified Code(s): I35.0 - Nonrheumatic aortic (valve) stenosis (9) Heart failure Current Visit: Yes Status: Acute Assessment and plan: Patient shows no sign of fluid overload at this time. Due to YOLANDA we will hold patient's lasix and ARB at this time Qualifiers: Heart failure type: diastolic Heart failure chronicity: chronic Qualified Code(s): I50.32 - Chronic diastolic (congestive) heart failure (10) DVT prophylaxis Current Visit: Yes Status: Acute Assessment and plan: SQ heparin - Time Spent With Patient Total time spent is greater than 50% in coordination of care (as documented) at patient's floor/unit and/or counseling patient: <Boris Feldman - Last Filed: 01/16/18 19:09> Date of Encounter: 01/16/18 Internal Medicine - H&P: HPI History of present illness: Ms. Joseph is a 87 year old female All Systems PM: A 10-system review of systems was performed and is negative for pertinent findings except as documented above in the HPI. - Constitutional Vitals: Temp Pulse Resp BP Pulse Ox 97.8 F 60 19 145/75 99 01/16/18 16:13 01/16/18 16:13 01/16/18 16:13 01/16/18 16:13 01/16/18 16:13 Internal Med - H&P Results - Labs CBC & Chem 7: 01/16/18 12:20 01/16/18 12:20 - Attending Attestation I examined this patient and my medical decision-making was reviewed with the Resident Physician on 01/16/18. I agree with the documented findings, disposition and treatment plan as described except to the extent set forth below. Ms Joseph is an 87 year old female with hx of CHF presented to ED with weakness and decreased urine output. She had recently been hospitalized for acute exac CHF. She went home and has not rebounded. She has been found to be in acute renal failure. She will be admitted for further work up and treatment. Pt denies complaint at this time. Family at bedside. Exam alert Comfortable Mucus membranes dry Heart distant Lungs clear Abd soft No edema I/P 1. YOLANDA 2. CHF hx Further diagnoses and plan as above. - Assessment and plan (1) Acute renal failure Current Visit: Yes Status: Suspected Qualifiers: Acute renal failure type: with acute tubular necrosis Qualified Code(s): N17.0 - Acute kidney failure with tubular necrosis (2) Aortic stenosis Current Visit: Yes Status: Acute Qualifiers: Cardiac valve disease etiology: etiology unspecified Qualified Code(s): I35.0 - Nonrheumatic aortic (valve) stenosis (3) Dehydration Current Visit: Yes Status: Acute (4) Essential hypertension Current Visit: Yes Status: Chronic (5) Diastolic heart failure Current Visit: Yes Status: Chronic Qualifiers: Heart failure chronicity: chronic Qualified Code(s): I50.32 - Chronic diastolic (congestive) heart failure (6) Dementia Current Visit: Yes Status: Chronic Qualifiers: Dementia type: unspecified type Dementia behavioral disturbance: with behavioral disturbance Qualified Code(s): F03.91 - Unspecified dementia with behavioral disturbance - Time Spent With Patient Total time spent is greater than 50% in coordination of care (as documented) at patient's floor/unit and/or counseling patient:
[2018-01-16] MEDS ORDERED: Haloperidol Lactate 5 MG/ML VIAL IM PRN (15:48)
[2018-01-16 15:50] LABS: Uric Acid 9.2 mg/dL (2.3-7.6)
--- NOTE | 2018-01-16 16:56 | Electrocardiograph Report ---
[place] [id number] Test Date: 2018-01-16 Pat Name: Majo Joseph Department: 103 Room: 3B Gender: F Educational Therapist: : [id number] Requested By: Anuj Angeles Order Number: [id number] Reading MD: Opal Krishnamurthy Measurements Intervals [place] Rate: 62 P: 15 NJ: 110 QRS: -63 QRSD: 169 T: 135 QT: 522 QTc: 528 Interpretive Statements ELECTRONIC VENTRICULAR PACEMAKER ABNORMAL RHYTHM ECG Electronically Signed On 01-16-2018 16:54:34 EDT by Opal Krishnamurthy
[2018-01-16] MEDS: *HR* Heparin 5,000 UNIT/ML VIAL SQ SCH (17:19)
[2018-01-16] MEDS: 0.9 % Sodium Chloride 1,000 ML IVC SCH (17:26)
[2018-01-17 02:33] LABS: Protein/Creatinine Ratio,Urine 0.13 mg/mg (0.00-0.20)
[2018-01-17] MEDS: 0.9 % Sodium Chloride 1,000 ML IVC SCH (02:49)
[2018-01-17] MEDS: *HR* Heparin 5,000 UNIT/ML VIAL SQ SCH ×2 (06:07→17:30)
[2018-01-17 06:37] LABS: Basophils # 0.1 K/mcL (0.0-0.2); Basophils % 0.8 %; Eosinophils # 0.4 K/mcL (0.0-0.6); Eosinophils % 5.4 %; Hematocrit 29.7 % (35.3-44.9); Hemoglobin 9.1 g/dL (11.5-15.4); Immature Granulocytes % 0.3 % (0-4); Lymphocytes # 2.1 K/mcL (0.6-4.6); Mean Corpuscular HGB Conc 30.6 g/dL (31.6-35.5); Mean Corpuscular Hemoglobin 25.8 pg (28.0-33.3); Mean Corpuscular Volume 84.1 fL (83.0-100.0); Mean Platelet Volume 10.5 fL (9.4-12.4); Monocytes # 0.6 K/mcL (0.0-1.3); Monocytes % 7.8 %; Neutrophils # 4.3 K/mcL (1.6-8.9); Platelet Count 180 K/mcL (140-400); Red Blood Count 3.53 M/mcL (3.82-4.97); Red Cell Distribution Width 14.1 % (11.5-14.5); Segmented Neutrophils % 57.7 %
[2018-01-17 06:57] LABS: Calcium 8.3 mg/dL (8.6-10.3); Potassium 3.7 mEq/L (3.5-5.1)
--- NOTE | 2018-01-17 14:05 | Internal Med Progress Note ---
<Brandy Rolon - Last Filed: 01/17/18 16:19> Date of Encounter: 01/17/18 Time of Encounter: 16:19 - Assessment and plan (1) YOLANDA (acute kidney injury) Current Visit: Yes Status: Acute Assessment and plan: Improving with rehydration. Creatinine now 1.43. We will continue to monitor with labs and urinary output. (2) Dehydration Current Visit: Yes Status: Acute Assessment and plan: Patient clinically hydrated on exam. Good urinary output. (3) Elevated troponin Current Visit: Yes Status: Acute Assessment and plan: Most likely due to YOLANDA. Patient denies chest pain or pressure. (4) Essential hypertension Current Visit: Yes Status: Chronic Assessment and plan: Patient at coreg at this time. BP controlled. Continue home meds (5) Dementia Current Visit: Yes Status: Chronic Assessment and plan: Ordered haldol for patient's delirium PRN. Patient has a history of delirium Qualifiers: Dementia type: unspecified type Dementia behavioral disturbance: with behavioral disturbance Qualified Code(s): F03.91 - Unspecified dementia with behavioral disturbance (6) Bipolar disorder Current Visit: Yes Status: Chronic Assessment and plan: Continue home medication Qualifiers: Active/Remission status: remission status unspecified Qualified Code(s): F31.9 - Bipolar disorder, unspecified (7) Depression Current Visit: Yes Status: Chronic Assessment and plan: Continue home medication Qualifiers: Depression Type: unspecified Qualified Code(s): F32.9 - Major depressive disorder, single episode, unspecified (8) Aortic stenosis Current Visit: Yes Status: Acute Assessment and plan: Moderate found on echo in 2017. Qualifiers: Cardiac valve disease etiology: etiology unspecified Qualified Code(s): I35.0 - Nonrheumatic aortic (valve) stenosis (9) Heart failure Current Visit: Yes Status: Acute Assessment and plan: Patient shows no sign of fluid overload at this time. Due to YOLANDA we will hold patient's lasix and ARB at this time Qualifiers: Heart failure type: diastolic Heart failure chronicity: chronic Qualified Code(s): I50.32 - Chronic diastolic (congestive) heart failure (10) DVT prophylaxis Current Visit: Yes Status: Acute Assessment and plan: SQ heparin - Time Spent With Patient Total time spent is greater than 50% in coordination of care (as documented) at patient's floor/unit and/or counseling patient: - Subjective Interval history: Patient states she is feeling significantly better today. Eating and drinking without difficulty. Good urinary output. Denies any concerns or complaints. - Constitutional Vitals: Temp Pulse Resp BP Pulse Ox 97.4 F L 74 15 153/77 92 01/17/18 10:57 01/17/18 10:57 01/17/18 10:57 01/17/18 10:57 01/17/18 10:57 General appearance: Present: A&O X 2, no acute distress - Head Head exam: Present: atraumatic, normal inspection, normocephalic - Respiratory Respiratory exam: Present: CTAB. Absent: accessory muscle use, respiratory distress - Cardiovascular Cardiovascular exam: Present: RRR - GI/Abdominal GI/Abdominal exam: Present: soft. Absent: rebound, rigid, tenderness - Extremities Exam Extremities exam: Present: warm. Absent: tenderness - Neurological Exam Neurological exam: Present: no focal deficits Internal Medicine: Result - Labs CBC & Chem 7: 01/17/18 05:58 01/17/18 05:58 Labs: Short CBC 01/17/18 Range/Units 05:58 WBC 7.5 (4.3-11.1) K/mcL Hgb 9.1 L (11.5-15.4) g/dL Hct 29.7 L (35.3-44.9) % Plt Count 180 (140-400) K/mcL Neutrophils # 4.3 (1.6-8.9) K/mcL BMP 01/17/18 05:58 Sodium 138 Potassium 3.7 Chloride 104 Carbon Dioxide 25 BUN 28 H Creatinine 1.43 H Glucose 73 Calcium 8.3 L Cardiac Enzymes 01/16/18 01/17/18 Range/Units 22:45 05:58 Troponin I 0.05 H* 0.04 H* (< 0.04) ng/mL - ABG Interpretation ABG results: PT/INR, D-dimer PT 13.7 Seconds (9.4-12.1) H 01/16/18 12:20 - Impressions Impressions Retroperitoneum Ultrasound 01/16/18 20:00 IMPRESSION: Unremarkable ultrasound of the kidneys and urinary bladder. D/ / Gaston Shepherd MD / Gaston Shepherd MD Interpreting Provider: Gaston Shepherd MD Consult Discharge Plan - Plan Referrals: Beti Lee CNP [Primary Care Provider] - 01/27/18 1:30 pm <Boris Feldman - Last Filed: 01/17/18 18:37> Date of Encounter: 01/17/18 - Assessment and plan (1) Acute renal failure Current Visit: Yes Status: Suspected Qualifiers: Acute renal failure type: with acute tubular necrosis Qualified Code(s): N17.0 - Acute kidney failure with tubular necrosis (2) Aortic stenosis Current Visit: Yes Status: Acute Qualifiers: Cardiac valve disease etiology: etiology unspecified Qualified Code(s): I35.0 - Nonrheumatic aortic (valve) stenosis (3) Dehydration Current Visit: Yes Status: Acute (4) Essential hypertension Current Visit: Yes Status: Chronic (5) Diastolic heart failure Current Visit: Yes Status: Chronic Qualifiers: Heart failure chronicity: chronic Qualified Code(s): I50.32 - Chronic diastolic (congestive) heart failure (6) Dementia Current Visit: Yes Status: Chronic Qualifiers: Dementia type: unspecified type Dementia behavioral disturbance: with behavioral disturbance Qualified Code(s): F03.91 - Unspecified dementia with behavioral disturbance - Time Spent With Patient Total time spent is greater than 50% in coordination of care (as documented) at patient's floor/unit and/or counseling patient: - Constitutional Vitals: Temp Pulse Resp BP Pulse Ox 98.1 F 78 16 147/67 93 01/17/18 15:06 01/17/18 15:06 01/17/18 15:06 01/17/18 15:06 01/17/18 15:06 Internal Medicine: Result - Labs CBC & Chem 7: 01/17/18 05:58 01/17/18 05:58 Labs: Short CBC 01/17/18 Range/Units 05:58 WBC 7.5 (4.3-11.1) K/mcL Hgb 9.1 L (11.5-15.4) g/dL Hct 29.7 L (35.3-44.9) % Plt Count 180 (140-400) K/mcL Neutrophils # 4.3 (1.6-8.9) K/mcL BMP 01/17/18 05:58 Sodium 138 Potassium 3.7 Chloride 104 Carbon Dioxide 25 BUN 28 H Creatinine 1.43 H Glucose 73 Calcium 8.3 L Cardiac Enzymes 01/16/18 01/17/18 Range/Units 22:45 05:58 Troponin I 0.05 H* 0.04 H* (< 0.04) ng/mL - ABG Interpretation ABG results: PT/INR, D-dimer PT 13.7 Seconds (9.4-12.1) H 01/16/18 12:20 - Impressions Impressions Retroperitoneum Ultrasound 01/16/18 20:00 IMPRESSION: Unremarkable ultrasound of the kidneys and urinary bladder. D/ / Gaston Shepherd MD / Gaston Shepherd MD Interpreting Provider: Gaston Shepherd MD - Attending Attestation I examined this patient and my medical decision-making was reviewed with the Resident Physician on 01/17/18. I agree with the documented findings, disposition and treatment plan as described except to the extent set forth below. Ms Joseph is currently admitted for acute renal failure. She remains moderate to high risk due to potential for worsening clinical status. Ms Joseph is feeling OK. She has had good urine output and her numbers are improving. Her family requests her to go to SNF. No fever or chills. No GI issues. Exam alert Comfortable Mucus membranes dry Heart distant No wheeze I/P 1. YOLANDA 2. CHF Further diagnoses and plan as above.
[2018-01-18 05:16] LABS: Basophils # 0.1 K/mcL (0.0-0.2); Basophils % 0.6 %; Eosinophils # 0.3 K/mcL (0.0-0.6); Eosinophils % 3.2 %; Hematocrit 33.4 % (35.3-44.9); Hemoglobin 10.4 g/dL (11.5-15.4); Immature Granulocytes % 0.1 % (0-4); Lymphocytes # 1.9 K/mcL (0.6-4.6); Lymphocytes % 21.3 %; Mean Corpuscular HGB Conc 31.1 g/dL (31.6-35.5); Mean Corpuscular Hemoglobin 25.6 pg (28.0-33.3); Mean Corpuscular Volume 82.3 fL (83.0-100.0); Mean Platelet Volume 10.6 fL (9.4-12.4); Monocytes # 0.5 K/mcL (0.0-1.3); Monocytes % 5.7 %; Neutrophils # 6.3 K/mcL (1.6-8.9); Platelet Count 224 K/mcL (140-400); Red Blood Count 4.06 M/mcL (3.82-4.97); Red Cell Distribution Width 14.1 % (11.5-14.5); Segmented Neutrophils % 69.1 %
[2018-01-18 05:39] LABS: BUN/Creatinine Ratio 20 (6-26); Blood Urea Nitrogen 17 mg/dL (8-23); Calcium 9.4 mg/dL (8.6-10.3); Carbon Dioxide 27 mEq/L (23-29); Chloride 108 mEq/L (98-107); Glucose 100 mg/dL (70-105); Osmolality,Calculated 298 (280-300); Potassium 3.9 mEq/L (3.5-5.1); Sodium 143 mEq/L (136-145); eGFR For African Americans > 60 (> 60); eGFR For Non-African Americans > 60 (> 60)
[2018-01-18] MEDS: *HR* Heparin 5,000 UNIT/ML VIAL SQ SCH ×2 (06:22→16:20)
--- NOTE | 2018-01-18 10:28 | Discharge Summary ---
<Brandy Rolon - Last Filed: 01/18/18 10:24> Date of Encounter: 01/18/18 Time of Encounter: 10:24 - Discharge Diagnosis (1) YOLANDA (acute kidney injury) Priority: Primary Status: Acute (2) Dehydration Priority: Secondary Status: Acute (3) Elevated troponin Priority: Secondary Status: Acute (4) Essential hypertension Priority: Secondary Status: Chronic (5) Dementia Priority: Secondary Status: Chronic Qualifiers: Dementia type: unspecified type Dementia behavioral disturbance: with behavioral disturbance Qualified Code(s): F03.91 - Unspecified dementia with behavioral disturbance (6) Bipolar disorder Priority: Secondary Status: Chronic Qualifiers: Active/Remission status: remission status unspecified Qualified Code(s): F31.9 - Bipolar disorder, unspecified (7) Depression Priority: Secondary Status: Chronic Qualifiers: Depression Type: unspecified Qualified Code(s): F32.9 - Major depressive disorder, single episode, unspecified (8) Aortic stenosis Priority: Secondary Status: Chronic Qualifiers: Cardiac valve disease etiology: etiology unspecified Qualified Code(s): I35.0 - Nonrheumatic aortic (valve) stenosis (9) Heart failure Priority: Secondary Status: Chronic Qualifiers: Heart failure type: diastolic Heart failure chronicity: chronic Qualified Code(s): I50.32 - Chronic diastolic (congestive) heart failure Hospital course: Ms. Joseph is a 88 year old female ith a past medical history of CHF, COPD on 2 L nasal cannula in the evening and sometimes during the day, HTN, TIA, pacemaker/ AICD, bipolar, depression and dementia presenting for evaluation of generalized weakness. The patient was discharged from [facility] one day ago after being treated for a CHF exacerbation. According to family at bedside patient has been weaker than normal since her admission. According to them she is normally able to use her walker to get from room to room but has been unable to walk by herself recently. They also state she has not had any urine output since being at home. Patient has not wanted to eat or drink and has been overall weak. Patient has not stated she has any chest pain, shortness of breath or dizziness. The patient herself is oriented to person and place however not year. Patient was fluid resuscitated during her stay with return of creatinine to baseline. Good urinary output. - Time Spent with Patient Total time spent providing and/or coordinating discharge services: - Discharge Medications Prescriptions: Sulfamethoxazole/Trimeth DS [Bactrim Ds] 1 each PO BID #6 tablet Home Medications: Buspirone HCl [Buspar] 5 mg PO BID 01/16/18 [History] Carvedilol [Coreg] 25 mg PO BID 01/16/18 [History] Cetirizine HCl [All Day Allergy] 10 mg PO DAILY 01/16/18 [History] DiphenhydraMINE [Benadryl] 25 mg PO BID PRN 01/16/18 [History] Docusate [Colace] 100 mg PO DAILY PRN 01/16/18 [History] Ergocalciferol (VITAMIN D2) [Vitamin D2] 50,000 unit PO QWEEK 01/16/18 [History] Fluticasone Propionate Nasal [Flonase] 1 spr NS DAILY 01/16/18 [History] Furosemide [Lasix] 40 mg PO DAILY 01/16/18 [History] Irbesartan [Avapro] 150 mg PO DAILY 01/16/18 [History] Montelukast [Singulair] 10 mg PO DAILY 01/16/18 [History] Potassium Chloride [K-Tab ER] 20 meq PO DAILY 01/16/18 [History] Sulfamethoxazole/Trimeth DS [Bactrim Ds] 1 each PO BID #6 tablet 01/18/18 [Rx] Allergies/Adverse Reactions: 3 Allergy/AdvReac Type Severity Reaction Status Date / Time Penicillins Allergy Hives Verified 09/09/16 14:39 Date of admission: 01/16/18 18:50 Primary care physician: Beti Lee CNP Consults: 01/17/18 10:51 Consult to 911 Telecommunicator [CONS] Routine Reason for SW Consult: patient may need SNF. Discharging clinician: Brandy Rolon Anticipated date of discharge: 01/18/18 - Constitutional Vitals: Temp Pulse Resp BP Pulse Ox 97.8 F 86 17 186/84 95 01/18/18 06:38 01/18/18 08:11 01/18/18 08:11 01/18/18 08:34 01/18/18 08:11 General appearance: Present: A&O X 2, no acute distress - Respiratory Respiratory exam: Present: CTAB. Absent: accessory muscle use, respiratory distress - Cardiovascular Cardiovascular exam: Present: RRR, systolic murmur - GI/Abdominal GI/Abdominal exam: Present: soft. Absent: guarding, rebound, rigid - Extremities Exam Extremities exam: Present: warm. Absent: tenderness - Neurological Exam Neurological exam: Present: alert, no focal deficits - Patient Status Disposition: Transfer SNF Condition: Good Functional capacity at discharge: uses cane/walker Overall status at discharge: patient is back to baseline - Discharge Instructions Follow Up With: Beti Lee CNP [Primary Care Provider] - 01/27/18 1:30 pm Forms: ED Satisfaction Letter, Work/School Release Additional Instructions: Please continue your home medications. Please start the antibiotic Bactrim for urinary tract infection. Please return if there are any worsening or new symptoms. - Diet and Activity Activity: increase activity as tolerated, resume usual activities as tolerated, wear oxygen at night Diet: advance to your usual diet <Boris Feldman - Last Filed: 01/18/18 16:23> Orders not resulted at time of discharge: Pending orders 01/19/18 04:00 BMP [Basic Metabolic Panel] AM 0400 Complete Blood Count [HEME] AM 0400 Date of Encounter: 01/18/18 - Discharge Diagnosis (1) Acute renal failure Priority: Primary Status: Suspected Qualifiers: Acute renal failure type: with acute tubular necrosis Qualified Code(s): N17.0 - Acute kidney failure with tubular necrosis (2) Aortic stenosis Status: Chronic Qualifiers: Cardiac valve disease etiology: etiology unspecified Qualified Code(s): I35.0 - Nonrheumatic aortic (valve) stenosis (3) Dehydration Status: Acute (4) Essential hypertension Status: Chronic (5) Diastolic heart failure Priority: Secondary Status: Chronic Qualifiers: Heart failure chronicity: chronic Qualified Code(s): I50.32 - Chronic diastolic (congestive) heart failure (6) Dementia Status: Chronic Qualifiers: Dementia type: unspecified type Dementia behavioral disturbance: with behavioral disturbance Qualified Code(s): F03.91 - Unspecified dementia with behavioral disturbance Hospital course: Ms. Joseph is a 88 year old female - Time Spent with Patient Total time spent providing and/or coordinating discharge services: 38min Date of admission: 01/16/18 18:50 Primary care physician: Beti Lee CNP Consults: 01/17/18 10:51 Consult to 911 Telecommunicator [CONS] Routine Reason for SW Consult: patient may need SNF. - Constitutional Vitals: Temp Pulse Resp BP Pulse Ox 97.7 F 78 16 180/82 97 01/18/18 15:41 01/18/18 15:41 01/18/18 15:41 01/18/18 15:41 01/18/18 15:41 - Attending Attestation I examined this patient and my medical decision-making was reviewed with the Resident Physician on 01/18/18. I agree with the documented findings, disposition and treatment plan as described except to the extent set forth below. Ms Joseph is has been admitted for acute renal failure due to dehydration. She was given IV fluids and had improvement in urine output and renal function. She is now afebrile and waiting for d/c to SNF. Ms Joseph is doing OK. She had a lot of anxiety this AM. She improved later. No fever or chills. Urine output good. Renal function improved. Exam Alert Comfortable Mucus membranes dry Heart distant No wheeze Plan D/C to SNF when arranged.
--- NOTE | 2018-01-18 10:37 | Physician Discharge Referral ---
Extended[facility] Referral Info Provider in Charge after Transfer: PCP Institutional Level of Care: Skilled - Diagnosis (1) YOLANDA (acute kidney injury) Priority: Primary Status: Acute (2) Dehydration Priority: Secondary Status: Acute (3) Elevated troponin Priority: Secondary Status: Acute (4) Essential hypertension Priority: Secondary Status: Chronic (5) Dementia Priority: Secondary Status: Chronic (6) Bipolar disorder Priority: Secondary Status: Chronic (7) Depression Priority: Secondary Status: Chronic (8) Aortic stenosis Priority: Secondary Status: Chronic (9) Heart failure Priority: Secondary Status: Chronic Prognosis: Fair Aware of Diagnosis: Family Aware of Prognosis: Family - Transfer Medications Prescriptions: Sulfamethoxazole/Trimeth DS [Bactrim Ds] 1 each PO BID #6 tablet Home Medications: Buspirone HCl [Buspar] 5 mg PO BID 01/16/18 [History] Carvedilol [Coreg] 25 mg PO BID 01/16/18 [History] Cetirizine HCl [All Day Allergy] 10 mg PO DAILY 01/16/18 [History] DiphenhydraMINE [Benadryl] 25 mg PO BID PRN 01/16/18 [History] Docusate [Colace] 100 mg PO DAILY PRN 01/16/18 [History] Ergocalciferol (VITAMIN D2) [Vitamin D2] 50,000 unit PO QWEEK 01/16/18 [History] Fluticasone Propionate Nasal [Flonase] 1 spr NS DAILY 01/16/18 [History] Furosemide [Lasix] 40 mg PO DAILY 01/16/18 [History] Irbesartan [Avapro] 150 mg PO DAILY 01/16/18 [History] Montelukast [Singulair] 10 mg PO DAILY 01/16/18 [History] Potassium Chloride [K-Tab ER] 20 meq PO DAILY 01/16/18 [History] Sulfamethoxazole/Trimeth DS [Bactrim Ds] 1 each PO BID #6 tablet 01/18/18 [Rx] Allergies/Adverse Reactions: 3 Allergy/AdvReac Type Severity Reaction Status Date / Time Penicillins Allergy Hives Verified 09/09/16 14:39 - Respiratory Orders Oxygen / L per min (2) Smoking Cessation: Smoking cessation has been advised. For more information, call the [facility] Quit Line at 4-724-UKCA-NOW. - Lab Orders Lab Orders: Other (include drug levels w/frequency) (BMP in 1 week) - Ancillary Orders May use pressure relief devices daily prn, May consult with Dentist, Tour Driver, [employer] Portal Developer PRN - Advance Directives Code Status: Full Code - Mobility Orders Ambulate (with assist) - Rehabiliation Orders Rehab Potential: Fair Rehab Orders: ROM Exercises, Evaluation for Physical Therapy, Evaluation for Occupational Therapy, Evaluation for Speech Therapy - Treatments Skin tear care topically daily PRN per policy, May check for fecal impaction rectally daily PRN, Fleet enema rectally every other day PRN cleansing purposes - Diet Orders Cardiac CERTIFICATION: I certify that the transfer of the above named patient to an Extended Care Facility is necessary for the continuing treatment of the diagnosis listed. The above information is true and accurate reflection of patient's current condition. Confidential - Redisclosure prohibited without a patient's written consent.
[2018-01-18] MEDS: Sulfamethoxazole/Trimeth DS 1 EACH TABLET PO SCH ×2 (10:47→20:13)
[2018-01-18] MEDS: Furosemide 40 MG TABLET PO SCH (10:47)
--- NOTE | 2018-01-18 11:21 | Event Note ---
<Brandy Rolon - Last Filed: 01/18/18 11:21> Date of Encounter: 01/18/18 Time of Encounter: 11:21 Patient is medically stable for discharge but waiting for placement. Most likely will be Tuesday. <Boris Feldman - Last Filed: 01/18/18 16:25> Date of Encounter: 01/18/18 Anticipate d/c when SNF arranged.
[2018-01-19 01:58] LABS: Basophils % 0.5 %; Eosinophils # 0.3 K/mcL (0.0-0.6); Eosinophils % 3.9 %; Hematocrit 34.2 % (35.3-44.9); Hemoglobin 10.7 g/dL (11.5-15.4); Immature Granulocytes % 0.2 % (0-4); Lymphocytes # 2.9 K/mcL (0.6-4.6); Mean Corpuscular HGB Conc 31.3 g/dL (31.6-35.5); Mean Corpuscular Hemoglobin 25.4 pg (28.0-33.3); Mean Platelet Volume 10.7 fL (9.4-12.4); Monocytes # 0.7 K/mcL (0.0-1.3); Monocytes % 8.5 %; Neutrophils # 4.3 K/mcL (1.6-8.9); Platelet Count 228 K/mcL (140-400); Red Blood Count 4.22 M/mcL (3.82-4.97); Red Cell Distribution Width 14.5 % (11.5-14.5); Segmented Neutrophils % 51.9 %
[2018-01-19 02:16] LABS: BUN/Creatinine Ratio 15 (6-26); Blood Urea Nitrogen 14 mg/dL (8-23); Calcium 9.5 mg/dL (8.6-10.3); Carbon Dioxide 26 mEq/L (23-29); Chloride 103 mEq/L (98-107); Glucose 98 mg/dL (70-105); Osmolality,Calculated 290 (280-300); Potassium 3.7 mEq/L (3.5-5.1); Sodium 140 mEq/L (136-145); eGFR For African Americans > 60 (> 60); eGFR For Non-African Americans 55 (> 60)
[2018-01-19] MEDS: *HR* Heparin 5,000 UNIT/ML VIAL SQ SCH ×2 (06:21→17:38)
[2018-01-19] MEDS: Sulfamethoxazole/Trimeth DS 1 EACH TABLET PO SCH (08:52)
[2018-01-19] MEDS: Furosemide 40 MG TABLET PO SCH (08:52)
--- NOTE | 2018-01-19 14:54 | Internal Med Progress Note ---
Date of Encounter: 01/19/18 Time of Encounter: 14:52 - Assessment and plan (1) Essential hypertension Current Visit: Yes Status: Chronic Assessment and plan: continue current meds (2) Dehydration Current Visit: Yes Status: Acute Assessment and plan: resolved encourage liberal fluid intake (3) Dementia Current Visit: Yes Status: Chronic Assessment and plan: chronic, stable, continue current management Qualifiers: Dementia type: unspecified type Dementia behavioral disturbance: with behavioral disturbance Qualified Code(s): F03.91 - Unspecified dementia with behavioral disturbance (4) Aortic stenosis Current Visit: Yes Status: Chronic Assessment and plan: chronic, stable Qualifiers: Cardiac valve disease etiology: etiology unspecified Qualified Code(s): I35.0 - Nonrheumatic aortic (valve) stenosis (5) Acute renal failure Current Visit: Yes Status: Resolved Assessment and plan: resolved Qualifiers: Acute renal failure type: with acute tubular necrosis Qualified Code(s): N17.0 - Acute kidney failure with tubular necrosis (6) Diastolic heart failure Current Visit: Yes Status: Chronic Assessment and plan: euvolemic, continue current management Qualifiers: Heart failure chronicity: chronic Qualified Code(s): I50.32 - Chronic diastolic (congestive) heart failure - Time Spent With Patient Total time spent is greater than 50% in coordination of care (as documented) at patient's floor/unit and/or counseling patient: - Subjective Interval history: Seen and examined at bedside Feels nervous Otherwise stable Urine culture resulted-MDRO E.coli, sensitive to bactrim, continue same med Awaiting placement - Constitutional Vitals: Temp Pulse Resp BP Pulse Ox 97.9 F 75 15 124/73 96 01/19/18 10:40 01/19/18 10:40 01/19/18 10:40 01/19/18 10:40 01/19/18 10:40 General appearance: Present: A&O X 2, no acute distress - Head Head exam: Present: atraumatic, normocephalic - Eye Eye exam: Present: PERRL, conjuntiva pink, sclera anicteric Pupils: Present: PERRL - Neck Neck exam general surgery: Present: supple, trachea midline. Absent: lymphadenopathy Internal Medicine: Result - Labs CBC & Chem 7: 01/19/18 01:15 01/19/18 01:15 Labs: Short CBC 01/19/18 Range/Units 01:15 WBC 8.2 (4.3-11.1) K/mcL Hgb 10.7 L (11.5-15.4) g/dL Hct 34.2 L (35.3-44.9) % Plt Count 228 (140-400) K/mcL Neutrophils # 4.3 (1.6-8.9) K/mcL BMP 01/19/18 01:15 Sodium 140 Potassium 3.7 Chloride 103 Carbon Dioxide 26 BUN 14 Creatinine 0.96 Glucose 98 Calcium 9.5 - ABG Interpretation ABG results: PT/INR, D-dimer PT 13.7 Seconds (9.4-12.1) H 01/16/18 12:20 Consult Discharge Plan - Plan Additional Instructions: Please continue your home medications. Please start the antibiotic Bactrim for urinary tract infection. Please return if there are any worsening or new symptoms. Prescriptions: Sulfamethoxazole/Trimeth DS [Bactrim Ds] 1 each PO BID #6 tablet
[2018-01-19] MEDS: Sulfamethoxazole/Trimeth SS 1 TAB PO SCH (20:51)
[2018-01-20] MEDS: *HR* Heparin 5,000 UNIT/ML VIAL SQ SCH (05:47)
[2018-01-20] MEDS: Sulfamethoxazole/Trimeth SS 1 TAB PO SCH (08:42)
[2018-01-20] MEDS: Furosemide 40 MG TABLET PO SCH (08:42)
--- NOTE | 2018-01-20 09:34 | Internal Med Progress Note ---
Date of Encounter: 01/20/18 Time of Encounter: 09:32 - Assessment and plan (1) Essential hypertension Current Visit: Yes Status: Chronic Assessment and plan: continue current meds (2) Dehydration Current Visit: Yes Status: Resolved Assessment and plan: resolved encourage liberal fluid intake (3) Dementia Current Visit: Yes Status: Chronic Assessment and plan: chronic, stable, continue current management Qualifiers: Dementia type: unspecified type Dementia behavioral disturbance: with behavioral disturbance Qualified Code(s): F03.91 - Unspecified dementia with behavioral disturbance (4) Aortic stenosis Current Visit: Yes Status: Chronic Assessment and plan: chronic, stable Qualifiers: Cardiac valve disease etiology: etiology unspecified Qualified Code(s): I35.0 - Nonrheumatic aortic (valve) stenosis (5) Acute renal failure Current Visit: Yes Status: Resolved Assessment and plan: resolved Qualifiers: Acute renal failure type: with acute tubular necrosis Qualified Code(s): N17.0 - Acute kidney failure with tubular necrosis (6) Diastolic heart failure Current Visit: Yes Status: Chronic Assessment and plan: euvolemic, continue current management Qualifiers: Heart failure chronicity: chronic Qualified Code(s): I50.32 - Chronic diastolic (congestive) heart failure (7) Urinary tract infection Current Visit: Yes Status: Acute Assessment and plan: MDRO E.coli Continue Bactrim for 3 more days at [facility] Qualifiers: Urinary tract infection type: site unspecified Hematuria presence: without hematuria Qualified Code(s): N39.0 - Urinary tract infection, site not specified - Time Spent With Patient Total time spent is greater than 50% in coordination of care (as documented) at patient's floor/unit and/or counseling patient: - Subjective Interval history: Seen and examined at bedside No new complains Otherwise stable Urine culture resulted-MDRO E.coli, sensitive to bactrim, continue same med AAccepted at [facility] this a.m, for discharge, medically clear Discharge summary from 01/18 noted, no change in events - Constitutional Vitals: Temp Pulse Resp BP Pulse Ox 98.4 F 69 15 179/74 96 01/20/18 06:47 01/20/18 06:47 01/20/18 06:47 01/20/18 06:47 01/20/18 06:47 General appearance: Present: A&O X 2, no acute distress - Head Head exam: Present: atraumatic, normocephalic - Eye Eye exam: Present: PERRL, conjuntiva pink, sclera anicteric Pupils: Present: PERRL - Neck Neck exam general surgery: Present: supple, trachea midline. Absent: lymphadenopathy - Respiratory Respiratory exam: Present: CTAB. Absent: accessory muscle use, rales, rhonchi, wheezes - Cardiovascular Cardiovascular exam: Present: RRR, +S1, +S2. Absent: diastolic murmur, gallop, rubs, systolic murmur - GI/Abdominal GI/Abdominal exam: Present: normal bowel sounds, soft, no peritoneal signs. Absent: distended, tenderness - Extremities Exam Extremities exam: Present: warm, radial pulses palpable and symmetrical. Absent : calf tenderness, cyanotic, pedal edema - Neurological Exam Neurological exam: Present: alert, CN II-XII intact, oriented X3, no focal deficits. Absent: pronater drift, facial droop, speech deficit - Skin Skin exam: Present: dry, intact Internal Medicine: Result - Labs CBC & Chem 7: 01/19/18 01:15 01/19/18 01:15 - ABG Interpretation ABG results: PT/INR, D-dimer PT 13.7 Seconds (9.4-12.1) H 01/16/18 12:20 Consult Discharge Plan - Plan Additional Instructions: Please continue your home medications. Please start the antibiotic Bactrim for urinary tract infection. Please return if there are any worsening or new symptoms. Referrals: Beti Lee CNP [Primary Care Provider] - Prescriptions: Sulfamethoxazole/Trimeth DS [Bactrim Ds] 1 each PO BID #6 tablet
[2018-01-20 11:31] VITALS: BP 128/72
== END 2018-01-20 13:40 | DRG 683 ==
LOC: EMEROO 11:47 → 3BNU 11:47 → SUATTDRO 18:50
PROVIDERS: ADMIT Internal Medicine Hematology & Oncology; ATTEND Internal Medicine